=== PATIENT | female | born 1960 | race African-American/Black ===

== ENCOUNTER → 2016-07-05 | Outpatient (CLI) | payer MEDICARE, MEDICAID ==
[~2016-07-05] MED LIST: ACET325S8 PR; ADVA230A PO; ADVAI250I PO; ALPR.25 PO; AMLO5TAB96 PO; CLON0.2T PO; ECOT81TA2 PO; HYDR10SO PO; ISOSM20 PO; LABE200T2 PO; LEVA0.3113 NEB; PRED20 PO; ROSU40 PO; SPIR25 PO; VITA400C28
[2016-07-05 07:47] LABS: AUTOMATED NEUTROPHIL # 6.8 TH/MM3 (1.8-7.7); BASOPHIL % 0.3 % (0.0-2.0); EOSINOPHIL # 0.2 TH/MM3 (0-0.4); EOSINOPHIL % 2.1 % (0.0-4.0); HEMATOCRIT 38.8 % (35.0-46.0); HEMO FLAGS DIFF FINAL; LYMPHOCYTE # 2.2 TH/MM3 (1.0-4.8); MEAN CELL VOLUME 92.3 FL (80.0-100.0); MEAN CORPUSCULAR HEMOGLOBIN 31.3 PG (27.0-34.0); MEAN CORPUSCULAR HGB CONC 33.9 % (32.0-36.0); MONO % 6.7 % (0.0-8.0); NEUT % 68.9 % (16.0-70.0); PLATELET COUNT 208 TH/MM3 (150-450); RED CELL DISTRIBUTION WIDTH 15.4 % (11.6-17.2); WHITE BLOOD COUNT 9.9 TH/MM3 (4.0-11.0)
[2016-07-05 08:05] LABS: BACTERIA, URINE OCC /hpf; BLOOD, URINE NEG (NEG); GLUCOSE,URINE NEG (NEG); HYALINE CAST, URINE 1 /lpf (RARE); KETONE, URINE NEG (NEG); MUCUS URINE FEW /lpf (OCC); NITRITE,URINE NEG (NEG); PH, URINE 5.5 (5.0-8.5); SQUAMOUS EPITHELIAL CELL URINE 1 /hpf (0-5); URINE COLOR YELLOW (YELLW/STRAW)
[2016-07-05 08:11] LABS: ALKALINE PHOSPHATASE 94 U/L (45-117); ALT (GPT) 18 U/L (10-53); ANION GAP 7 MEQ/L (5-15); AST (GOT) 9 U/L (15-37); BICARBONATE 24.7 MEQ/L (21.0-32.0); BLOOD UREA NITROGEN 28 MG/DL (7-18); CHLORIDE 105 MEQ/L (98-107); GLOMERULAR FILTRATION RATE 38 ML/MIN (>89); GLUCOSE,FASTING 108 MG/DL (74-99); SODIUM (NA) 137 MEQ/L (136-145); TOTAL BILIRUBIN ADULT 0.3 MG/DL (0.2-1.0)
[2016-07-05 08:15] LABS: WESTERGREN SEDIMENTATION RATE 42 mm/hr (0-30)
== END ==
LOC: CLAB 07:09
PROVIDERS: ATTEND Allergy & Immunology
DX: M32.9 Systemic lupus erythematosus, unspecified (principal)
CPT/HCPCS: 36415; 80053; 81001; 85025; 85652; 86140; 86225

== ENCOUNTER → 2016-08-09 | Outpatient (CLI) | payer MEDICARE, MEDICAID ==
[2016-08-09 07:05] LABS: AUTOMATED NEUTROPHIL # 8.4 TH/MM3 (1.8-7.7); BASOPHIL # 0.1 TH/MM3 (0-0.2); BASOPHIL % 0.7 % (0.0-2.0); EOSINOPHIL # 0.1 TH/MM3 (0-0.4); EOSINOPHIL % 1.3 % (0.0-4.0); HEMATOCRIT 38.3 % (35.0-46.0); HEMO FLAGS DIFF FINAL; LYMPH % 16.9 % (9.0-44.0); LYMPHOCYTE # 1.9 TH/MM3 (1.0-4.8); MEAN CELL VOLUME 92.1 FL (80.0-100.0); MEAN CORPUSCULAR HEMOGLOBIN 31.1 PG (27.0-34.0); MEAN CORPUSCULAR HGB CONC 33.7 % (32.0-36.0); MONO % 8.1 % (0.0-8.0); PLATELET COUNT 204 TH/MM3 (150-450); RED BLOOD COUNT 4.16 MIL/MM3 (4.00-5.30); RED CELL DISTRIBUTION WIDTH 15.6 % (11.6-17.2); WHITE BLOOD COUNT 11.5 TH/MM3 (4.0-11.0)
[2016-08-09 07:28] LABS: ALT (GPT) 19 U/L (10-53); ANION GAP 8 MEQ/L (5-15); AST (GOT) 9 U/L (15-37); BICARBONATE 25.5 MEQ/L (21.0-32.0); BLOOD UREA NITROGEN 28 MG/DL (7-18); CHLORIDE 108 MEQ/L (98-107); GLOMERULAR FILTRATION RATE 43 ML/MIN (>89); GLUCOSE,FASTING 92 MG/DL (74-99); POTASSIUM 4.3 MEQ/L (3.5-5.1); SODIUM (NA) 141 MEQ/L (136-145)
[2016-08-09 07:30] LABS: ALKALINE PHOSPHATASE 81 U/L (45-117); TOTAL BILIRUBIN ADULT 0.3 MG/DL (0.2-1.0)
[2016-08-09 07:33] LABS: WESTERGREN SEDIMENTATION RATE 12 mm/hr (0-30)
== END ==
LOC: CLAB 06:38
PROVIDERS: ATTEND Allergy & Immunology
DX: M32.8 Other forms of systemic lupus erythematosus (principal); Z79.899 Other long term (current) drug therapy
CPT/HCPCS: 36415; 80053; 85025; 85652; 86140

== ENCOUNTER → 2016-10-03 | Outpatient (CLI) | payer MEDICARE, MEDICAID ==
[2016-10-03 07:55] LABS: AUTOMATED NEUTROPHIL # 7.7 TH/MM3 (1.8-7.7); BASOPHIL # 0.1 TH/MM3 (0-0.2); BASOPHIL % 0.7 % (0.0-2.0); EOSINOPHIL # 0.3 TH/MM3 (0-0.4); EOSINOPHIL % 2.9 % (0.0-4.0); HEMATOCRIT 38.9 % (35.0-46.0); HEMO FLAGS DIFF FINAL; LYMPH % 18.3 % (9.0-44.0); MEAN CELL VOLUME 92.5 FL (80.0-100.0); MEAN CORPUSCULAR HEMOGLOBIN 31.1 PG (27.0-34.0); MEAN CORPUSCULAR HGB CONC 33.6 % (32.0-36.0); NEUT % 70.1 % (16.0-70.0); PLATELET COUNT 188 TH/MM3 (150-450); RED BLOOD COUNT 4.21 MIL/MM3 (4.00-5.30); RED CELL DISTRIBUTION WIDTH 15.2 % (11.6-17.2)
[2016-10-03 07:56] LABS: BACTERIA, URINE RARE /hpf; BLOOD, URINE NEG (NEG); COMMENT (UR) CULT NOT INDICATED; CULTURE IF INDICATED CULT NOT INDICATED; GLUCOSE,URINE NEG (NEG); KETONE, URINE NEG (NEG); MUCUS URINE FEW /lpf (OCC); NITRITE,URINE NEG (NEG); PH, URINE 5.5 (5.0-8.5); SQUAMOUS EPITHELIAL CELL URINE 1 /hpf (0-5); URINE COLOR YELLOW (YELLW/STRAW)
[2016-10-03 08:22] LABS: ALT (GPT) 18 U/L (10-53); ANION GAP 4 MEQ/L (5-15); AST (GOT) 15 U/L (15-37); BICARBONATE 28.1 MEQ/L (21.0-32.0); BLOOD UREA NITROGEN 20 MG/DL (7-18); CHLORIDE 107 MEQ/L (98-107); GLOMERULAR FILTRATION RATE 47 ML/MIN (>89); GLUCOSE,FASTING 102 MG/DL (74-99); POTASSIUM 4.2 MEQ/L (3.5-5.1); SODIUM (NA) 139 MEQ/L (136-145); WESTERGREN SEDIMENTATION RATE 48 mm/hr (0-30)
[2016-10-03 08:25] LABS: ALKALINE PHOSPHATASE 92 U/L (45-117); TOTAL BILIRUBIN ADULT 0.3 MG/DL (0.2-1.0)
== END ==
LOC: CLAB 07:00
PROVIDERS: ATTEND Allergy & Immunology
DX: M32.8 Other forms of systemic lupus erythematosus (principal); Z79.899 Other long term (current) drug therapy
CPT/HCPCS: 36415; 80053; 81001; 85025; 85652; 86140; 86225

== ENCOUNTER → 2016-11-16 | Outpatient (CLI) | payer MEDICARE, MEDICAID ==
[2016-11-16 08:59] LABS: BICARBONATE 27.9 MEQ/L (21.0-32.0); FREE T4 1.11 NG/DL (0.76-1.46); POTASSIUM 4.2 MEQ/L (3.5-5.1); URIC ACID 8.2 MG/DL (2.6-6.0)
[2016-11-16 09:00] LABS: CORTISOL 11.7 MCG/DL
[2016-11-16 09:24] LABS: MAGNESIUM 2.1 MG/DL (1.5-2.5)
[2016-11-17 19:53] LABS: THYROGLOB ABS LESS THAN 1 IU/mL (< OR = 1)
[2016-11-21 07:39] LABS: HDL CHOLESTEROL 35.2 MG/DL (40.0-60.0)
== END ==
LOC: CLAB 07:01
PROVIDERS: ATTEND Internal Medicine Endocrinology, Diabetes & Metabolism
DX: E04.9 Nontoxic goiter, unspecified (principal); E04.1 Nontoxic single thyroid nodule; I10 Essential (primary) hypertension; Z78.0 Asymptomatic menopausal state; K76.0 Fatty (change of) liver, not elsewhere classified; I70.209 Unspecified atherosclerosis of native arteries of extremities, unspecified extremity; E66.01 Morbid (severe) obesity due to excess calories; I11.9 Hypertensive heart disease without heart failure
CPT/HCPCS: 36415; 80048; 80061; 82024; 82043; 82088; 82306; 82533; 82627; 82747; 83525; 83735; 83970; 84100; 84206; 84244; 84439; 84443; 84450; 84460; 84480; 84550; 84681; 86376; 86800

== ENCOUNTER → 2016-11-21 | Outpatient (CLI) | payer MEDICARE, MEDICAID ==
[2016-11-21 12:19] LABS: CREAT 24 TIMED 110.9 MG/DL
[2016-11-22 18:04] LABS: IODINE CONCENTRATION 95 mcg/L (26-705)
== END ==
LOC: CLAB 07:07
PROVIDERS: ATTEND Internal Medicine Endocrinology, Diabetes & Metabolism
DX: E04.1 Nontoxic single thyroid nodule (principal); I10 Essential (primary) hypertension; K76.0 Fatty (change of) liver, not elsewhere classified; I70.209 Unspecified atherosclerosis of native arteries of extremities, unspecified extremity; E66.01 Morbid (severe) obesity due to excess calories; E66.9 Obesity, unspecified; I11.9 Hypertensive heart disease without heart failure; I25.118 Atherosclerotic heart disease of native coronary artery with other forms of angina pectoris; I48.0 Paroxysmal atrial fibrillation; Z78.0 Asymptomatic menopausal state
CPT/HCPCS: 82570; 83789

== ENCOUNTER 2016-12-10 17:14 | Observation (INO) | payer MEDICARE, MEDICAID ==
[~2016-12-10] VITALS: Ht 165.1 cm; Wt 127.0 kg
[2016-12-10 17:17] VITALS: PULSE 70; RESP 20; TEMP 98.8; O2SAT 96
[2016-12-10] MEDS ORDERED: SODIUM CHLORIDE 0.9% FLUSH 10 ML FLUSH IVF PRN (17:30)
[2016-12-10 17:41] VITALS: BP 127/88; PULSE 71; RESP 18; TEMP 98.6; O2SAT 97
[2016-12-10] MEDS ORDERED: methylPREDNISolone SOD SUCC 125 MG/2 ML VIAL IV PUSH ONE (17:45)
[2016-12-10] MEDS ORDERED: diphenhydrAMINE HCL 50 MG/ML VIAL IV PUSH ONE (17:45)
[2016-12-10] MEDS ORDERED: SODIUM CHLOR 0.9% 1000 ML INJ 1,000 ML IV ONE (17:45)
[2016-12-10] MEDS ORDERED: FAMOTIDINE 20 MG/2 ML VIAL IV PUSH ONE (17:45)
[2016-12-10 17:54] VITALS: O2SAT 100
--- NOTE | 2016-12-10 18:01 | RADRPT ---
EXAM DATE/TIME: 12/10/2016 17:37 [facility] COMPARISON: CHEST SINGLE AP, November 25, 2015, 17:18. INDICATIONS : Chest pain. MEDICAL HISTORY : Chronic obstructive pulmonary disease. Congestive heart failure. Asthma. SURGICAL HISTORY : Tonsillectomy. section. Coronary artery stent. Cervical fusion. Cardiac ENCOUNTER: Initial ACUITY: 1 day PAIN SCORE: 10/10 LOCATION: Bilateral chest FINDINGS: A single view of the chest demonstrates the lungs to be symmetrically aerated without evidence of mas s, infiltrate or effusion. Cardiomegaly. The cardiomediastinal contours are unremarkable. Osseous st ructures are intact. CONCLUSION: No acute disease. Dg Garcia MD on December 10, 2016 at 17:59 Board Certified Radiologist. This report was verified electronically.
--- NOTE | 2016-12-10 18:01 | PD ---
HPI Chief Complaint: Pain: Acute or Chronic Time Seen by Provider: 17:26 Travel History International Travel<30 days: No Contact w/Intl Traveler<30days: No Traveled to known affect area: No History of Present Illness HPI Patient is a 56-year-old female with history of lupus, CABG, coronary artery disease, hyperlipidemia, CHF, ischemic heart disease, hypertension, A. fib, chronic kidney disease, presents to emergency room with complaints of chest pain. Patient was sent to the emergency room by her primary care doctor to rule out aortic dissection. Patient reports that for the past 2 days, she has been having chest pain radiating to her back. Reports that sensation is a sharp and stabbing sensation. Reports that she has been feeling nauseous with her chest pain, denies any vomiting. Patient denies any shortness of breath or diaphoresis with symptoms. Patient reports that she is currently taking Effient as well as ASA for her heart disease. PFSH Past Medical History Hx Anticoagulant Therapy: Yes Anemia: Yes Arthritis: Yes Asthma: Yes Atrial Fibrillation: Yes (NOT NOW) Autoimmune Disease: Yes (LUPUS) Blood Disorders: No Anxiety: Yes Heart Rhythm Problems: Yes (A-FIB) Cancer: No Cardiac Catheterization: Yes (JULY 2006) Cardiomyopathy: Yes Cardiovascular Problems: Yes High Cholesterol: Yes Chest Pain: Yes Congestive Heart Failure: Yes COPD: Yes Cerebrovascular Accident: No Coronary Artery Disease: Yes Diabetes: No Endocrine: No Genetic Disorder: Yes (SICKLE CELL) GERD: No Genitourinary: No Headaches: Yes Hepatitis: No Hiatal Hernia: No Hypertension: Yes Immune Disorder: No Inguinal Hernia: Yes Kidney Stones: No Musculoskeletal: Yes (FIBROMYALGIA, CHRONIC PAIN) Neurologic: No Psychiatric: Yes Reproductive: No Respiratory: Yes (COPD, SLEEP APNEA/CPAP W/O2) Migraines: No Myocardial Infarction: Yes Renal Failure: No Seizures: No Sleep Apnea: Yes Thyroid Disease: Yes (GOITER) Ulcer: No : 4 Para: 2 Miscarriage: 2 Ovarian Cysts: Yes (UTERINE CYSTS X 4) Tubal Ligation: Yes (1982) Past Surgical History Abdominal Surgery: Yes (HERNIA REPAIR UMBILICAL) AICD: No Appendectomy: No Arteriovenous Shunt: No Body Medical Devices: NONE AT ALL Cardiac Surgery: Yes (ABLATION IN 2000, LOOP RECORDER, CABG) Section: Yes (1979 1982) Cholecystectomy: No Coronary Artery Bypass Graft: Yes (WITH MULTIPLE INFECTIONS POSTOP) Coronary Stent: Yes (X2, DR LONGO, 2WKS AGO) Ear Surgery: No Endocrine Surgery: No Eye Surgery: No Genitourinary Surgery: No Gynecologic Surgery: Yes (C SECTION X2) Insulin Pump: No Joint Replacement: No Neurologic Surgery: Yes (CERVICAL FUSION C2-C5) Oral Surgery: Yes (T & A) Pacemaker: No Thoracic Surgery: No Tonsillectomy: Yes Social History Alcohol Use: No Tobacco Use: No Substance Use: No Allergies-Medications (Allergen,Severity, Reaction): Coded Allergies: Codeine (Verified Allergy, Severe, NAUSEA/VOMITING, 11/25/15) Contrast Media (Verified Allergy, Severe, RASH, 11/25/15) Darvocet-N 100 (Verified Allergy, Severe, NAUSEA/VOMITING, 11/25/15) Darvon (Verified Allergy, Severe, NAUSEA/VOMITING, 11/25/15) Morphine (Verified Allergy, Severe, Rash, 11/25/15) Phenergan (Verified Allergy, Severe, AGITATION, 11/25/15) Reglan (Verified Allergy, Severe, AGITATION, 11/25/15) Latex (Verified Allergy, Unknown, RASH, 11/25/15) PLEASE, CHECK WITH PT HER REACTION TO LATEX. Ativan (Verified Adverse Reaction, Severe, AGITATION, 11/25/15) Cipro (Verified Adverse Reaction, Severe, 11/25/15) NAUSEA Reported Meds & Prescriptions Reported Meds & Active Scripts Active Aldactone 25 mg (Spironolactone) 25 Mg Tab 25 Mg PO BID@09,18 30 Days Hydrocodone/Acetaminophen 10 mg/325 mg 1 Tab 1 Tab PO Q4H PRN Ecotrin (Aspirin) 81 Mg Tabec 81 Mg PO DAILY 30 Days Ismo 20 Mg Tab (Isosorbide Mononitrate) 20 Mg Tab 20 Mg PO BID@07,14 30 Days Clonidine Hcl (Clonidine HCl) 0.2 Mg Tab 0.2 Mg PO BID 30 Days Reported Advair Hfa 230/21 (Fluticasone-Salmeterol HFA 230 mcg/21 mcg) Fluticasone/ Salmeterol 230/21 Inh 2 Puff PO BID Xanax 0.25 Mg (Alprazolam) Alprazolam 0.25 mg Tab 1 Tab PO BID Crestor (Rosuvastatin Calcium) 40 Mg Tab 40 Mg PO DAILY Advair Diskus 250/50 (Salmeterol Xinafoate/Fluticasone) Fluticasone/Salmeterol 250/50 Inh 1 Puff PO BID Vitamin D (Cholecalciferol) 400 Unit Cap Tylenol (Acetaminophen) 325 Mg Sup 325 Mg OR Q6H Deltasone 20 Mg Tab (Prednisone) 20 Mg Tab 20 Mg PO DAILY Norvasc (Amlodipine Besylate) 5 Mg Tab 10 Mg PO DAILY Trandate (Labetalol HCl) 200 Mg Tab 300 Mg PO TID Xopenex (Levalbuterol HCl) 0.31 Mg Neb 0 Mg NEB DAILYPRN UNKNOWN DOSE Review of Systems Cardiovascular: Positive: Chest Pain or Discomfort, No: Palpitations, Irregular Rhythm Respiratory: No: Shortness of Breath Gastrointestinal: Positive: Nausea, No: Vomiting, Abdominal Pain Physical Exam Narrative GENERAL: Moderate distress SKIN: Focused skin assessment warm/dry. HEAD: Atraumatic. Normocephalic. EYES: Pupils equal and round. No scleral icterus. No injection or drainage. ENT: No nasal bleeding or discharge. Mucous membranes pink and moist. NECK: Trachea midline. No JVD. CARDIOVASCULAR: Regular rate and rhythm. No murmur appreciated. RESPIRATORY: No accessory muscle use. Clear to auscultation. Breath sounds equal bilaterally. GASTROINTESTINAL: Abdomen soft, non-tender, nondistended. Hepatic and splenic margins not palpable. MUSCULOSKELETAL: No obvious deformities. No clubbing. No cyanosis. No edema. NEUROLOGICAL: Awake and alert. No obvious cranial nerve deficits. Motor grossly within normal limits. Normal speech. PSYCHIATRIC:Patient anxious on exam Data Data Last Documented VS Vital Signs Date Time Temp Pulse Resp B/P Pulse Ox O2 Delivery O2 Flow Rate FiO2 12/10/16 17:54 100 12/10/16 17:41 98.6 71 18 127/88 12/10/16 17:17 Room Air Orders Electrocardiogram (12/10/16 17:24) B-Type Natriuretic Peptide (12/10/16 17:24) Ckmb (Isoenzyme) Profile (12/10/16 17:24) Complete Blood Count With Diff (12/10/16 17:24) Comprehensive Metabolic Panel (12/10/16 17:24) Magnesium (Mg) (12/10/16 17:24) Prothrombin Time / Inr (Pt) (12/10/16 17:24) Act Partial Throm Time (Ptt) (12/10/16 17:24) Troponin I (12/10/16 17:24) Lipase (12/10/16 17:24) Chest, Single Ap (12/10/16 17:24) Ecg Monitoring (12/10/16 17:24) Bilateral Bp Monitoring (12/10/16 17:24) Iv Access Insert/Monitor (12/10/16 17:24) Oximetry (12/10/16 17:24) Sodium Chloride 0.9% Flush (Ns Flush) (12/10/16 17:30) Cta Thor Abd Aorta W Iv C W3d (12/10/16 17:35) Methylprednisolone So Succ Inj (Solumedr (12/10/16 17:45) Diphenhydramine Inj (Benadryl Inj) (12/10/16 17:45) Famotidine Inj (Pepcid Inj) (12/10/16 17:45) Sodium Chlor 0.9% 1000 Ml Inj (Ns 1000 M (12/10/16 17:45) Type And Screen (12/10/16 17:39) CKMB (12/10/16 17:30) CKMB% (12/10/16 17:30) Labs Laboratory Tests Test 12/10/16 12/10/16 17:30 18:00 White Blood Count 11.1 TH/MM3 Red Blood Count 4.47 MIL/MM3 Hemoglobin 14.0 GM/DL Hematocrit 41.4 % Mean Corpuscular Volume 92.5 FL Mean Corpuscular Hemoglobin 31.2 PG Mean Corpuscular Hemoglobin 33.7 % Concent Red Cell Distribution Width 16.1 % Platelet Count 220 TH/MM3 Mean Platelet Volume 10.3 FL Neutrophils (%) (Auto) 68.9 % Lymphocytes (%) (Auto) 20.9 % Monocytes (%) (Auto) 7.7 % Eosinophils (%) (Auto) 2.2 % Basophils (%) (Auto) 0.3 % Neutrophils # (Auto) 7.6 TH/MM3 Lymphocytes # (Auto) 2.3 TH/MM3 Monocytes # (Auto) 0.9 TH/MM3 Eosinophils # (Auto) 0.2 TH/MM3 Basophils # (Auto) 0.0 TH/MM3 CBC Comment DIFF FINAL Differential Comment Prothrombin Time 10.6 SEC Prothromb Time International 1.0 RATIO Ratio Activated Partial 30.2 SEC Thromboplast Time Sodium Level 140 MEQ/L Potassium Level 3.5 MEQ/L Chloride Level 102 MEQ/L Carbon Dioxide Level 29.1 MEQ/L Anion Gap 9 MEQ/L Blood Urea Nitrogen 29 MG/DL Creatinine 1.70 MG/DL Estimat Glomerular Filtration 38 ML/MIN Rate Random Glucose 96 MG/DL Calcium Level 9.0 MG/DL Magnesium Level 2.1 MG/DL Total Bilirubin 0.4 MG/DL Aspartate Amino Transf 10 U/L (AST/SGOT) Alanine Aminotransferase 18 U/L (ALT/SGPT) Alkaline Phosphatase 95 U/L Total Creatine Kinase 105 U/L Creatine Kinase MB 1.1 NG/ML Troponin I 0.02 NG/ML Total Protein 8.5 GM/DL Albumin 3.5 GM/DL Lipase 203 U/L Blood Type O POSITIVE MDM Medical Decision Making Medical Screen Exam Complete: Yes Emergency Medical Condition: Yes Interpretation(s) EKG at 1742: NSR at 67bpm, qt/qtc: 441/457, st seg depression I, II, avl, V3-V6 Vital Signs Date Time Temp Pulse Resp B/P Pulse Ox O2 Delivery O2 Flow Rate FiO2 12/10/16 17:41 98.6 71 18 127/88 97 12/10/16 17:17 98.8 70 20 96 Room Air Differential Diagnosis Differential includes ACS, arrhythmia, aortic dissection, pulmonary embolism, GERD, gastritis, electrolyte abnormality Narrative Course Patient is a 56-year-old female with history of lupus, CABG, coronary artery disease, hyperlipidemia, CHF, ischemic heart disease, hypertension, A. fib, chronic kidney disease, presents to emergency room with complaints of chest pain. Patient was sent to the emergency room by her primary care doctor to rule out aortic dissection. Patient reports that for the past 2 days, she has been having chest pain radiating to her back. Patient was sent to the ER to rule out aortic dissection. Patient reports that she has chronic kidney disease, patient understands the risk and benefits of IV dye, that she may need dialysis if she goes into kidney failure and accepts the risk Patient also reports an allergy to IV dye, reports that she breaks out into hives. Reports no history of airway involvement. Patient will be premedicated with Solu-Medrol 125 mg IV, benadryl 50 mg IV, Pepcid 20 mg IV. Case was reviewed with Dr. Damon, radiologist; patient can have CAT scan to rule out aortic dissection after she receives her IV steroids and does not have to wait the 1 hour prep time. I reviewed all risks and benefits for CT with IV contrast to rule out aortic dissection - patient assumes this risk. Patient signed out to Dr. Amaya at change of shift Nae Chau DO Dec 10, 2016 18:01
[2016-12-10 18:06] LABS: AUTOMATED NEUTROPHIL # 7.6 TH/MM3 (1.8-7.7); BASOPHIL % 0.3 % (0.0-2.0); EOSINOPHIL # 0.2 TH/MM3 (0-0.4); EOSINOPHIL % 2.2 % (0.0-4.0); HEMATOCRIT 41.4 % (35.0-46.0); HEMO FLAGS DIFF FINAL; LYMPH % 20.9 % (9.0-44.0); LYMPHOCYTE # 2.3 TH/MM3 (1.0-4.8); MEAN CELL VOLUME 92.5 FL (80.0-100.0); MEAN CORPUSCULAR HEMOGLOBIN 31.2 PG (27.0-34.0); MEAN CORPUSCULAR HGB CONC 33.7 % (32.0-36.0); MONO % 7.7 % (0.0-8.0); NEUT % 68.9 % (16.0-70.0); PLATELET COUNT 220 TH/MM3 (150-450); RED BLOOD COUNT 4.47 MIL/MM3 (4.00-5.30); RED CELL DISTRIBUTION WIDTH 16.1 % (11.6-17.2); WHITE BLOOD COUNT 11.1 TH/MM3 (4.0-11.0)
[2016-12-10 18:16] LABS: APTT (PATIENT) 30.2 SEC (24.3-30.1); PROTHROMBIN TIME - PATIENT 10.6 SEC (9.8-11.6)
[2016-12-10 18:35] LABS: ANION GAP 9 MEQ/L (5-15); AST (GOT) 10 U/L (15-37); BICARBONATE 29.1 MEQ/L (21.0-32.0); BLOOD UREA NITROGEN 29 MG/DL (7-18); CHLORIDE 102 MEQ/L (98-107); GLOMERULAR FILTRATION RATE 38 ML/MIN (>89); MAGNESIUM 2.1 MG/DL (1.5-2.5); POTASSIUM 3.5 MEQ/L (3.5-5.1); SODIUM (NA) 140 MEQ/L (136-145)
[2016-12-10 18:40] LABS: ALKALINE PHOSPHATASE 95 U/L (45-117); ALT (GPT) 18 U/L (10-53); CREATINE KINASE 105 U/L (26-192); TOTAL BILIRUBIN ADULT 0.4 MG/DL (0.2-1.0)
[2016-12-10 18:52] LABS: CKMB 1.1 NG/ML (0.5-3.6)
[2016-12-10] MEDS ORDERED: IOHEXOL 350 MG/ML 10 ML VIAL (for RAD DIAG) IV ONE (19:04)
--- NOTE | 2016-12-10 19:17 | RADRPT ---
EXAM DATE/TIME: 12/10/2016 18:37 [facility] COMPARISON: No previous studies available for comparison. INDICATIONS : Chest pain. IV CONTRAST: 100 cc Omnipaque 350 (iohexol) IV RADIATION DOSE: 44.52 CTDIvol (mGy) ; Patient body habitus MEDICAL HISTORY : Cardiovascular disease. SURGICAL HISTORY : cardiac ENCOUNTER: Initial ACUITY: 3 days PAIN SCALE: 4/10 LOCATION: Bilateral chest TECH NOTE: scanned with premedication prior to one hour protocal per Dr Damon. best possible images due to patient allergy. TECHNIQUE: Volumetric scanning was performed using a multi-row detector CT scanner. The data was post processed with a variety of visualization algorithms including full volume maximum intensity projection, multi -planar sliding thin slab reformation, curved planar reformation, and surface rendering techniques. Using automated exposure control and adjustment of the mA and/or kV according to patient size, radiat ion dose was kept as low as reasonably achievable to obtain optimal diagnostic quality images. DICOM format image data is available electronically for review and comparison. FINDINGS: LUNGS: There is no consolidation or pneumothorax. No concerning pulmonary nodule is visualized. No pleural fluid is present. MEDIASTINUM: No abnormally enlarged lymph nodes by CT criteria. No axillary or hilar abnormalities are identified. Cardiomegaly. ABDOMEN: The liver and spleen are free of focal defects. The gallbladder and pancreas demonstrate no abnormali ty. The adrenal glands are normal. The kidneys demonstrate no evidence of solid renal mass or hydrone phrosis. No free fluid or abdominal masses are identified. Scattered diverticulosis. No para-aortic a denopathy is seen. Left renal cyst. PELVIS: No evidence of free fluid or pelvic mass. No abnormally enlarged inguinal or retroperitoneal lymph no lynda are present. The bladder is unremarkable. Enlarged heterogeneous uterus containing masses includi ng a mass along the anterior left pelvis likely exophytic fibroid measuring 5.5 cm. Second cystic pel mango mass is seen more superiorly measuring 4.2 cm. THORACIC AORTA: The thoracic aortic root is normal with normal branching of the great vessels. There is no evidence of aneurysm or dissection. ABDOMINAL AORTA: The aorta is normal in caliber without aneurysm or dissection. The renal arteries are patent bilater ally. The proximal celiac and superior mesenteric arteries are patent and normal in diameter. PELVIC VESSELS: The internal iliac and external iliac vessels are patent without aneurysm or stenosis. CONCLUSION: 1. No aortic aneurysm or dissection. 2. Cardiomegaly. 3. Enlargement of the pulmonary trunk consistent with pulmonary arterial hypertension. 4. A large heterogeneous uterus containing multiple masses including what appears to be an exophytic anterior left pelvic mass and a second cystic mass seen within the upper left pelvis. These are likel y related to leiomyomas. Outpatient followup imaging recommended. 5. Diverticulosis without diverticulitis. Dg Garcia MD on December 10, 2016 at 19:12 Board Certified Radiologist. This report was verified electronically.
--- NOTE | 2016-12-10 19:54 | PD ---
Data Data Last Documented VS Vital Signs Date Time Temp Pulse Resp B/P Pulse Ox O2 Delivery O2 Flow Rate FiO2 12/10/16 17:54 100 12/10/16 17:41 98.6 71 18 127/88 12/10/16 17:17 Room Air Orders Electrocardiogram (12/10/16 17:24) B-Type Natriuretic Peptide (12/10/16 17:24) Ckmb (Isoenzyme) Profile (12/10/16 17:24) Complete Blood Count With Diff (12/10/16 17:24) Comprehensive Metabolic Panel (12/10/16 17:24) Magnesium (Mg) (12/10/16 17:24) Prothrombin Time / Inr (Pt) (12/10/16 17:24) Act Partial Throm Time (Ptt) (12/10/16 17:24) Troponin I (12/10/16 17:24) Lipase (12/10/16 17:24) Chest, Single Ap (12/10/16 17:24) Ecg Monitoring (12/10/16 17:24) Bilateral Bp Monitoring (12/10/16 17:24) Iv Access Insert/Monitor (12/10/16 17:24) Oximetry (12/10/16 17:24) Sodium Chloride 0.9% Flush (Ns Flush) (12/10/16 17:30) Cta Thor Abd Aorta W Iv C W3d (12/10/16 17:35) Methylprednisolone So Succ Inj (Solumedr (12/10/16 17:45) Diphenhydramine Inj (Benadryl Inj) (12/10/16 17:45) Famotidine Inj (Pepcid Inj) (12/10/16 17:45) Sodium Chlor 0.9% 1000 Ml Inj (Ns 1000 M (12/10/16 17:45) Type And Screen (12/10/16 17:39) CKMB (12/10/16 17:30) CKMB% (12/10/16 17:30) Iohexol 350 Inj (Omnipaque 350 Inj) (12/10/16 19:04) Red Blood Cells (Rbc) (12/10/16 18:00) Labs Laboratory Tests Test 12/10/16 12/10/16 17:30 18:00 White Blood Count 11.1 TH/MM3 Red Blood Count 4.47 MIL/MM3 Hemoglobin 14.0 GM/DL Hematocrit 41.4 % Mean Corpuscular Volume 92.5 FL Mean Corpuscular Hemoglobin 31.2 PG Mean Corpuscular Hemoglobin 33.7 % Concent Red Cell Distribution Width 16.1 % Platelet Count 220 TH/MM3 Mean Platelet Volume 10.3 FL Neutrophils (%) (Auto) 68.9 % Lymphocytes (%) (Auto) 20.9 % Monocytes (%) (Auto) 7.7 % Eosinophils (%) (Auto) 2.2 % Basophils (%) (Auto) 0.3 % Neutrophils # (Auto) 7.6 TH/MM3 Lymphocytes # (Auto) 2.3 TH/MM3 Monocytes # (Auto) 0.9 TH/MM3 Eosinophils # (Auto) 0.2 TH/MM3 Basophils # (Auto) 0.0 TH/MM3 CBC Comment DIFF FINAL Differential Comment Prothrombin Time 10.6 SEC Prothromb Time International 1.0 RATIO Ratio Activated Partial 30.2 SEC Thromboplast Time Sodium Level 140 MEQ/L Potassium Level 3.5 MEQ/L Chloride Level 102 MEQ/L Carbon Dioxide Level 29.1 MEQ/L Anion Gap 9 MEQ/L Blood Urea Nitrogen 29 MG/DL Creatinine 1.70 MG/DL Estimat Glomerular Filtration 38 ML/MIN Rate Random Glucose 96 MG/DL Calcium Level 9.0 MG/DL Magnesium Level 2.1 MG/DL Total Bilirubin 0.4 MG/DL Aspartate Amino Transf 10 U/L (AST/SGOT) Alanine Aminotransferase 18 U/L (ALT/SGPT) Alkaline Phosphatase 95 U/L Total Creatine Kinase 105 U/L Creatine Kinase MB 1.1 NG/ML Troponin I 0.02 NG/ML B-Type Natriuretic Peptide 44 PG/ML Total Protein 8.5 GM/DL Albumin 3.5 GM/DL Lipase 203 U/L Blood Type O POSITIVE Antibody Screen NEGATIVE [facility] Medical Record Reviewed: Yes Supervised Visit with MEDARDO: No Interpretation(s) Last Impressions Aorta CTA 12/10/16 8341 Signed Impressions: Service Date/Time: Saturday, December 10, 2016 18:37 - CONCLUSION: 1. No aortic aneurysm or dissection. 2. Cardiomegaly. 3. Enlargement of the pulmonary trunk consistent with pulmonary arterial hypertension. 4. A large heterogeneous uterus containing multiple masses including what appears to be an exophytic anterior left pelvic mass and a second cystic mass seen within the upper left pelvis. These are likely related to leiomyomas. Outpatient followup imaging recommended. 5. Diverticulosis without diverticulitis. Dg Garcia MD Chest X-Ray 12/10/16 1204 Signed Impressions: Service Date/Time: Saturday, December 10, 2016 17:37 - CONCLUSION: No acute disease. Dg Garcia MD Narrative Course During the course of the patients emergency department visit, the patients history, examination, and differential diagnosis were reviewed with the patient. The patient had IV access obtained and blood work sent for analysis. The patient was placed on a radiation monitor with oximetry and blood pressure monitoring. The patients laboratory studies were reviewed and remarkable for a white count 11.1, hemoglobin 14, platelets 220 with a normal differential, CMP is remarkable for a BUN of 29, creatinine 1.70, GFR of 38, AST 10, CPK 105, troponin I 0.02, BNP 44, total protein 8.5, lipase 203, PT 10.6, PTT 30.2 Radiology studies were reviewed and remarkable for a chest x-ray that shows no acute disease, CT of the aorta shows no aortic aneurysm or dissection, cardiomegaly is noted, enlargement the pulmonary trunk consistent with pulmonary arterial hypertension is noted, a large heterogeneous uterus containing multiple masses including what appears to be an exophytic anterior left pelvic mass and as second cystic mass seen within the upper left pelvis. These are likely related to leiomyomas, outpatient follow-up imaging recommended , diverticulosis without evidence of diverticulitis. The patient was provided aspirin 324 mg by mouth 1. The patient will be admitted to the chest pain center for rule out serial cardiac enzyme protocol followed by consideration of stress testing. The patients results were discussed with the patient, including the plan of care. I explained that further testing and/ or monitoring is indicated based on the patients history, examination, and/ or laboratory findings. Therefore, I recommended admission for additional evaluation. The patient expressed understanding and was agreeable with this plan. The patient was admitted to the hospital in stable condition and sent to a bed under the care of the chest pain center. Diagnosis Primary Impression: Chest pain, rule out acute myocardial infarction Admitting Information Admitting Physician Requests: Dominique Nagy MD Dec 10, 2016 19:54
[2016-12-10] MEDS ORDERED: ASPIRIN 81 MG CHEW TAB CHEW ONE (20:00)
[2016-12-10] MEDS ORDERED: ONDANSETRON HCL 4 MG/2 ML VIAL IV PRN (20:15)
[2016-12-10] MEDS ORDERED: SODIUM CHLORIDE 0.9% FLUSH 10 ML FLUSH IV FLUSH PRN (20:15)
[2016-12-10] MEDS ORDERED: TORS20TA PO (20:37)
[2016-12-10] MEDS ORDERED: TYLE325T PO (20:37)
[2016-12-10] MEDS ORDERED: AMLO5TAB2 PO (20:37)
[2016-12-10] MEDS ORDERED: PRED20 PO (20:37)
[2016-12-10] MEDS ORDERED: SPIR25 PO (20:37)
[2016-12-10] MEDS ORDERED: PRAS10TA PO (20:37)
[2016-12-10] MEDS ORDERED: LEVA3NEB12 NEB ×2 (20:37)
[2016-12-10] MEDS ORDERED: ROSU40 PO (20:37)
[2016-12-10] MEDS ORDERED: HYDR-3516 PO (20:37)
[2016-12-10] MEDS ORDERED: ISOS20TA PO (20:37)
[2016-12-10] MEDS ORDERED: ALPR.25 PO (20:37)
[2016-12-10] MEDS ORDERED: ADVA230A INH (20:37)
[2016-12-10] MEDS ORDERED: LABE200T2 PO (20:37)
[2016-12-10] MEDS ORDERED: NITRSPR6 (20:37)
[2016-12-10] MEDS ORDERED: ASPI81TA81 (20:37)
[2016-12-10] MEDS ORDERED: CLON0.2T PO (20:37)
[2016-12-10] MEDS: SODIUM CHLORIDE 0.9% FLUSH 10 ML FLUSH IV FLUSH SCH (20:41)
[2016-12-10 20:48] VITALS: BP 160/92; PULSE 67; RESP 18; O2SAT 97
[2016-12-10] MEDS: ACETAMINOPHEN 500 MG CPLT PO PRN (22:49)
[2016-12-11] VITALS (8 sets, daily range): BP systolic 130–160; BP diastolic 72–80; PULSE 66–81; RESP 18–20; TEMP 97.7–98.6; O2SAT 95–97
[2016-12-11 00:09] LABS: CREATINE KINASE 99 U/L (26-192)
[2016-12-11] MEDS: ACETAMINOPHEN 500 MG CPLT PO PRN (04:48)
--- NOTE | 2016-12-11 08:14 | HHI.HP ---
HPI Primary Care Physician Ashkan Ignacio MD Chief Complaint Chest pain History of Present Illness 56-year-old female with known coronary artery disease, CABG, hyperlipidemia, hypertensive heart failure, lupus, and A. fib presents to emergency room by the direction of her primary care provider to rule out aortic dissection. Onset Saturday afternoon. Location epigastrium. Characterized as "sore." Difficult for her to describe. Radiation to her back, back pain described as splitting pain. Associated symptoms of nausea. Denied vomiting, diaphoresis, shortness of breath. No particular movement or position may pain better or worse. It did not hurt to take a deep breath. No known precipitating or relieving factors. Intermittent chest discomfort pear and with "feeling funny" alerted her to tell her PCP. Her primary care provider directed her to the emergency room to be ruled out for aortic dissection. Review of Systems General: No fatigue,weakness, fever, chills, recent illness, recent travel, or change in appetite. Has been in her general state of health. HEENT: No DUFF, no nasal congestion or drainage, no dysphasia CV: As stated above. Denies any current chest pain or pressure. Follows with Dr. Morales last appointment 2 weeks ago. RESP: No SOB, cough, wheeze, or history of asthma. GI: No nausea, vomiting, bowel changes, diarrhea, constipation, pain, or distention. : No dysuria EXT: No lower leg edema, no paraesthesias MS: No discomfort or change in ROM NEURO: No difficulty with balance, LOC, motor/sensory deficits PSYCH: No anxiety, depression, or suicidal ideation SKIN: No rashes, no concerning lesions Past Family Social History Allergies: Coded Allergies: Codeine (Verified Allergy, Severe, NAUSEA/VOMITING, 12/10/16) Contrast Media (Verified Allergy, Severe, RASH, 12/10/16) Darvocet-N 100 (Verified Allergy, Severe, NAUSEA/VOMITING, 12/10/16) Darvon (Verified Allergy, Severe, NAUSEA/VOMITING, 12/10/16) Morphine (Verified Allergy, Severe, Rash, 12/10/16) Phenergan (Verified Allergy, Severe, AGITATION, 12/10/16) Reglan (Verified Allergy, Severe, AGITATION, 12/10/16) Latex (Verified Allergy, Unknown, RASH, 12/10/16) PLEASE, CHECK WITH PT HER REACTION TO LATEX. Ativan (Verified Adverse Reaction, Severe, AGITATION, 12/10/16) Cipro (Verified Adverse Reaction, Severe, 12/10/16) NAUSEA Past Medical History Lupus, CAD, CKD, hyperlipidemia, CHF, hypertension, A. fib, COPD, cardiac stent , goiter Past Surgical History CABG 2007, L breast cancer lumpectomy, tonsillectomy, C section x2, cervical fusion C2-C6 Reported Medications Active Reported Nitrolingual Sublingual Pumpspray (Nitroglycerin) 0.4 Mg/Act [place] Effient (Prasugrel) 10 Mg Tab 10 Mg PO HS Torsemide 20 Mg Tab 20 Mg PO MWS Aldactone (Spironolactone) 25 Mg Tab 25 Mg PO BIDPC Crestor (Rosuvastatin Calcium) 40 Mg Tab 40 Mg PO DAILY Prednisone 20 Mg Tab 20 Mg PO DAILY Hydrocodone-Acetaminophen 5-325 mg Tab 1 Tab PO Q6H PRN Xopenex Neb (Levalbuterol HCl) 1.25 Mg/3 Ml Neb 1.25 Mg NEB ONCE Xopenex Neb (Levalbuterol HCl) 1.25 Mg/3 Ml Neb 1.25 Mg NEB QID Labetalol (Labetalol HCl) 200 Mg Tab 400 Mg PO TID Isosorbide Mononitrate 20 Mg Tab 30 Mg PO BID Take 2 doses 7 hours apart. Advair Hfa 12 GM Inh (Fluticasone-Salmeterol 12 GM Inh) 230-21 Mcg/Act Aer 2 Puff INH BID Clonidine (Clonidine HCl) 0.2 Mg Tab 0.2 Mg PO BID Aspir-81 (Aspirin) 81 Mg Tabdr Amlodipine (Amlodipine Besylate) 5 Mg Tab 5 Mg PO HS Xanax (Alprazolam) 0.25 Mg Tab 0.25 Mg PO Q8H PRN Tylenol (Acetaminophen) 325 Mg Tab 325 Mg PO Q6H PRN Active Ordered Medications Current Medications Medications (Trade) Dose Ordered Sig/Finesse Route Start Time Stop Time Status Last Admin (Tylenol) 500 mg Q4H PRN PO 12/10/16 20:15 12/11/16 04:48 (Zofran Inj) 4 mg Q6H PRN IV 12/10/16 20:15 Social History Known CAD, HTN, and Hyperlipidemia. No known diabetes. Lifelong non-smoker. Jessica any alcohol or illegal drugs. Past Cardiac Testing 11/28/15 Cardiac Catheterization-(Dr. Rausch)-IMPRESSION 1. Severe two- vessel coronary atherosclerosis. 2. Status post non-ST elevation myocardial infarction. 3. Partially patent right internal mammary artery graft to the right ventricular marginal branch with an occluded limb to the posterior descending branch. No recent stress testing. Follows with Dr. Walls, seen two weeks ago in office. Physical Exam Vital Signs Vital Signs Date Time Temp Pulse Resp B/P Pulse Ox O2 Delivery O2 Flow Rate FiO2 12/11/16 07:11 97 Nasal Cannula 2.00 12/11/16 06:00 18 12/11/16 04:36 78 18 160/80 97 12/11/16 04:10 Nasal Cannula 2.00 12/11/16 04:01 81 12/11/16 01:20 98.6 66 18 130/72 96 12/11/16 00:36 77 12/10/16 20:48 67 18 160/92 97 Room Air 12/10/16 17:54 100 12/10/16 17:41 98.6 71 18 127/88 97 12/10/16 17:17 98.8 70 20 96 Room Air Physical Exam GENERAL: Alert WN, WD, NAD, pleasant, morbidly obese female HEAD: NC, AT EYES: Sclera clear, conjunctiva without injection, pupils equal and round ENT: Mucous membranes pink and moist NECK: Supple, no masses, trachea midline CV: RRR, without murmur, rub, gallop, no JVD, S1-S2 no S3-S4. RESP: Clear lungs throughout bilateral, no crackles, wheeze, rhonchi, symmetrical chest rise, nonlabored, able to speak in full sentences ABD: Soft, NT, ND, no masses, positive bowel tones, obese BACK: No CVAT EXT: Pulses +24, no dependent edema MS: Normal tone 4 extremities, nontender, no obvious deformities, full range of motion NEURO: CN II through CN XII grossly intact, motor strength 5/5, gait WNL PSYCH: A+O 3, pleasant affect, appropriate speech, appropriate mood and affect , insight and judgment SKIN: Normal turgor, normal texture, substernal chest scar Laboratory Laboratory Tests Test 12/10/16 12/10/16 12/10/16 12/10/16 17:30 18:00 20:59 23:32 White Blood Count 11.1 Red Blood Count 4.47 Hemoglobin 14.0 Hematocrit 41.4 Mean Corpuscular Volume 92.5 Mean Corpuscular Hemoglobin 31.2 Mean Corpuscular Hemoglobin 33.7 Concent Red Cell Distribution Width 16.1 Platelet Count 220 Mean Platelet Volume 10.3 Neutrophils (%) (Auto) 68.9 Lymphocytes (%) (Auto) 20.9 Monocytes (%) (Auto) 7.7 Eosinophils (%) (Auto) 2.2 Basophils (%) (Auto) 0.3 Neutrophils # (Auto) 7.6 Lymphocytes # (Auto) 2.3 Monocytes # (Auto) 0.9 Eosinophils # (Auto) 0.2 Basophils # (Auto) 0.0 CBC Comment DIFF FINAL Differential Comment Prothrombin Time 10.6 Prothromb Time International 1.0 Ratio Activated Partial 30.2 Thromboplast Time Sodium Level 140 Potassium Level 3.5 Chloride Level 102 Carbon Dioxide Level 29.1 Anion Gap 9 Blood Urea Nitrogen 29 Creatinine 1.70 Estimat Glomerular Filtration 38 Rate Random Glucose 96 Calcium Level 9.0 Magnesium Level 2.1 Total Bilirubin 0.4 Aspartate Amino Transf 10 (AST/SGOT) Alanine Aminotransferase 18 (ALT/SGPT) Alkaline Phosphatase 95 Total Creatine Kinase 105 92 99 Creatine Kinase MB 1.1 Troponin I 0.02 0.02 LESS THAN 0.02 B-Type Natriuretic Peptide 44 Total Protein 8.5 Albumin 3.5 Lipase 203 Blood Type O POSITIVE Antibody Screen NEGATIVE Crossmatch Leukocyte-Reduced Red Blood Cells Blood Bank Comment Result Diagram: 12/10/16172912/10/161729 Imaging Last Impressions Aorta CTA 12/10/161734 Signed Impressions: Service Date/Time: Saturday, December 10, 2016 18:37 - CONCLUSION: 1. No aortic aneurysm or dissection. 2. Cardiomegaly. 3. Enlargement of the pulmonary trunk consistent with pulmonary arterial hypertension. 4. A large heterogeneous uterus containing multiple masses including what appears to be an exophytic anterior left pelvic mass and a second cystic mass seen within the upper left pelvis. These are likely related to leiomyomas. Outpatient followup imaging recommended. 5. Diverticulosis without diverticulitis. Dg Garcia MD Chest X-Ray 12/10/161723 Signed Impressions: Service Date/Time: Alphonse, December 10, 2016 17:37 - CONCLUSION: No acute disease. Dg Garcia MD Course EKGs Normal sinus rhythm, moderate T-wave inversion- compared to last EKG and unchanged Assessment and Plan Assessment and Plan #1 Atypical chest pain-admitted to chest pain center. Ruled out with 3 sets of EKGs, cardiac enzymes, CTA aorta, and monitored overnight. Seen and evaluated by Dr. Patience Laguna. Call placed to patients yeast maker, Dr. Morales, to notify of patient's arrival to chest pain center for further recommendation. Current symptoms atypical for chest pain most likely GI related. #2 GERD-omeprazole prescription given at discharge, follow-up with PCP #3 Hypertension-continue amlodipine, continue to monitor #4 CADcontinue Imdur, aspirin, Effient, and Crestor 10:25 Dr. Morales seen and spoke with patient. Net Maker okay for discharge with follow up later today. Plans for cardiac catheterization , not for current symptoms but for progressive worsening angina previously discussed at last week's appointment. Patient agreeable to plan of care. Venus Murrieta Dec 11, 2016 08:14
[2016-12-11] MEDS ORDERED: NITROGLYCERIN 0.4 MG SL 25 TABS/BTL SL PRN (08:15)
[2016-12-11] MEDS ORDERED: ISOSORBIDE MONONITRATE 20 MG TAB PO SCH (09:00)
[2016-12-11] MEDS ORDERED: predniSONE 20 MG TAB PO SCH (09:00)
[2016-12-11] MEDS ORDERED: ATORVASTATIN 80 MG TAB PO SCH (09:00)
[2016-12-11] MEDS ORDERED: [UNRECOGNIZED DRUG - OTHER] INH SCH (09:00)
[2016-12-11] MEDS ORDERED: SPIRONOLACTONE 25 MG TAB PO SCH (09:00)
[2016-12-11] MEDS ORDERED: FLUTICASONE SALMETEROL INH SCH (09:00)
[2016-12-11] MEDS ORDERED: LABETALOL HCL 200 MG TAB PO SCH (09:00)
[2016-12-11] MEDS ORDERED: PILL SPLITTER OTHER PRN (09:30)
[2016-12-11] MEDS: SODIUM CHLORIDE 0.9% FLUSH 10 ML FLUSH IV FLUSH SCH (09:44)
[2016-12-11] MEDS ORDERED: OMEP40CA2 PO (10:26)
--- NOTE | 2016-12-11 10:44 | HHI.DCPOC ---
Discharge Care Plan Diagnosis: (1) GERD (gastroesophageal reflux disease) (2) Hx of coronary artery disease Goals to Promote Your Health * To prevent worsening of your condition and complications * To maintain your health at the optimal level Directions to Meet Your Goals Take your medications as prescribed Follow your dietary instruction Follow activity as directed Keep your appointments as scheduled Take your immunizations and boosters as scheduled If your symptoms worsen call your PCP, if no PCP go to Urgent Care Center or Emergency Room Smoking is Dangerous to Your Health. Avoid second hand smoke Call the 24-hour hour crisis hotline for domestic abuse at Venus Murrieta Dec 11, 2016 10:43
--- NOTE | 2016-12-11 12:15 | EKG ---
Date Performed: 12/11/2016 Time Performed: 04:47:45 PTAGE: 56 years EKG: Sinus rhythm MODERATE T-WAVE ABNORMALITY, CONSIDER LATERAL ISCHEMIA ABNORMAL ECG Since previous tracing, no signi ficant change noted NO PREVIOUS TRACING DOCTOR: Patience Laguna Interpretating Date/Time 12/11/2016 12:14:02
--- NOTE | 2016-12-11 12:15 | EKG ---
Date Performed: 12/10/2016 Time Performed: 23:28:58 PTAGE: 56 years EKG: Sinus rhythm MODERATE INTRAVENTRICULAR CONDUCTION DELAY ST DEVIATION AND MODERATE T-WAVE ABNORMALITY, CONSIDER AN TEROLATERAL ISCHEMIA ABNORMAL ECG Since PREVIOUS TRACING , no significant change noted PREVIOUS TRACIN12/10/2016 23.28 DOCTOR: Patience Laguna Interpretating Date/Time 12/11/2016 12:14:59
--- NOTE | 2016-12-11 12:16 | EKG ---
Date Performed: 12/10/2016 Time Performed: 20:54:50 PTAGE: 56 years EKG: SINUS BRADYCARDIA WITH SINUS ARRHYTHMIA MODERATE T-WAVE ABNORMALITY, CONSIDER ANTEROLATERAL ISCHEMIA ABNORMAL ECG PREVIOUS TRACING : 12/10/2016 17.42 Since previous tracing, no significant change noted DOCTOR: Patience Laguna Interpretating Date/Time 12/11/2016 12:15:27
--- NOTE | 2016-12-11 12:19 | EKG ---
Date Performed: 12/10/2016 Time Performed: 17:42:56 PTAGE: 56 years EKG: Sinus rhythm ST DEVIATION AND MODERATE T-WAVE ABNORMALITY, CONSIDER LATERAL ISCHEMIA ABNORMAL ECG Since PREVIOUS TRACING , no significant change noted PREVIOUS TRACIN11/26/2015 06.26 DOCTOR: Patience Laguna Interpretating Date/Time 12/11/2016 12:17:21
--- NOTE | 2016-12-11 12:56 | MB ---
cc: RONAK STEIN M.D. DATE OF CONSULTATION December 11, 2016 REASON FOR CONSULTATION Chest pain. HISTORY Ms. Rao is a 56-year-old -L[place]anese female well-known to me with history of coronary artery disease, chronic stable angina pectoris, ischemic cardiomyopathy, paroxysmal atrial fibrillation and flutter status post ablation, and hypertensive heart disease. The patient was referred to the emergency room yesterday because of an anterior sharp shooting chest discomfort that radiated through to her back. This has been occurring intermittently and appears to be related to position such as lying down or meals. She has also been having exertional angina which I discussed with her when I saw her in the office about two weeks ago. Her isosorbide dose was increased at that time but she says it gave her a headache and she reduced it back to her previous dose. She has not had any angina type symptoms over the past 24 hours but says they come on with any exertion or exercise. They also come on with emotional stress. She has been taking her other medications as directed. She is currently sitting up in bed and asymptomatic. All of her cardiac enzymes since admission have been negative. Her EKGs are unchanged from her office EKGs. She underwent some imaging studies including a CTA of the aorta yesterday to rule out any aortic pathology and that was negative. MEDICATIONS 1. Prasugrel 10 mg at bedtime. 2. Isosorbide mononitrate 30 mg b.i.d. and I had increased it to 60 mg b.i.d. at her last visit back on November 27. 3. Labetalol 400 mg p.o. t.i.d. 4. Deltasone 20 mg daily. 5. Spironolactone 25 mg b.i.d. 6. Lipitor 80 mg daily. 7. Aspirin 325 mg given on admission and 81 mg daily at home. 8. She was given a dose of famotidine 20 mg IV x 1. 9. She was treated pre-CTA with methylprednisolone and Benadryl yesterday for her reported allergy to contrast. ALLERGIES ATIVAN. CIPRO. CODEINE. INTRAVENOUS CONTRAST. DARVOCET N100. DARVON. LATEX. MORPHINE. PHENERGAN. REGLAN. PAST SURGICAL HISTORY 1. Coronary artery bypass grafting x 2 vessels with a right internal mammary graft to the RCA and PDA, February 06, 2008. The distal portion of that is known to be occluded by cardiac catheterization in November of 2015. She has moderate disease in the circumflex as well which was evaluated last year with FFR examination and medical therapy was continued. 2. She has history of two C-sections. 3. Cervical fusion. 4. Hernia repair. 5. Breast lump removal x 3. 6. D&Cs and blood transfusions. 7. She has had an implantable loop recorder for evaluation of palpitations and recurrent atrial arrhythmias. 8. Previous atrial fibrillation ablation. FAMILY HISTORY Noncontributory. SOCIAL HISTORY The patient is living with her mother who creates a lot of stress for her. She has history of tobacco use but quit over 11 years ago. Denies alcohol or illicit drug use. REVIEW OF SYSTEMS Some lower extremity edema at times, currently stable. Denies claudication. Denies lightheadedness or syncope. Denies fevers, chills, night sweats, nausea, vomiting, diarrhea. Denies bleeding or clotting disorders. Except for that mentioned in the HPI, her complete 12-point review of systems otherwise is negative. PHYSICAL EXAMINATION GENERAL: An obese middle-aged -L[place]anese female sitting up in bed in no distress at this time. VITAL SIGNS: Blood pressure 142/78 mmHg, heart rate is 70 and regular, respiratory rate 20, temperature 97.8, oxygen saturation 95% on room air. HEENT: Head is normocephalic and atraumatic. Pupils equal, round and reactive to light. Sclerae anicteric. Extraocular movements intact. NECK: Supple. There is no adenopathy. There is no jugular venous distention at 90 degrees. Carotid upstrokes are normal. No bruits. Thyroid exam is normal. LUNGS: Clear. HEART: PMI is not displaced. S1-S2 normal. No murmurs, gallops, clicks or rubs. ABDOMEN: Obese. Bowel sounds present. There is tenderness in the epigastrium that reproduces some of her discomfort. There is no hepatosplenomegaly, masses or bruits appreciated. EXTREMITIES: No cyanosis, clubbing or edema. Perfusion is adequate in the upper and lower extremities. NEUROLOGIC EXAM: Grossly intact. EKG Sinus rhythm, rate 83, diffuse T-wave abnormalities, abnormal EKG. No change since admission and no change from previous EKGs in my office. IMAGING STUDIES Chest x-ray from yesterday - No acute disease. IMAGING STUDIES Aortic CTA shows no aortic aneurysm or dissection. Cardiomegaly. Enlargement of the pulmonary trunk consistent with pulmonary arterial hypertension. LABORATORY DATA Cardiac enzymes negative x 3 sets with most recently a CPK of 99 and a troponin-I of less than 0.02. BNP 44. BUN 29, creatinine 1.7, magnesium 2.1. Electrolytes normal. CBC normal. Coags normal. IMPRESSION 1. Atypical chest pain, suspect some of which is musculoskeletal in etiology and some of which is probably related to GI etiology and her history of hiatal hernia and reflux. 2. ASHD with angina pectoris functional Class II-III. 3. Hypertensive heart disease, currently well-controlled. 4. Abnormal EKG, chronic and stable. 5. History of paroxysmal atrial fibrillation/flutter status post ablation currently in sinus rhythm. 6. Status post CABG x 2 vessels with a free right internal mammary graft to right coronary artery which is partially patent based upon cardiac catheterization last year. 7. Moderate circumflex artery disease. 8. CKD. 9. Hyperlipidemia. 10. Lupus. 11. Obesity. I have had a long discussion with the patient. I think the symptoms that she was evaluated for here are not cardiac in etiology but she is having a moderate amount of exertional angina which is impairing her lifestyle. We will let her go home today. She is going to retry the increased dose of isosorbide [address] her on some omeprazole for her GI symptoms. 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 I will plan an outpatient cardiac catheterization for reevaluation of her circumflex artery disease to be sure that has not progressed or whether or not we can improve her symptoms with percutaneous coronary intervention. Discussed the indications, benefits and risks with her in detail. She understands these risks including acute myocardial infarction, VT/VF, , arterial injury, bleeding, stroke, and possible need for repeat open heart surgery and emergency surgery. She is agreeing and willing to proceed as planned. I will schedule this morning here at [place] scheduling permitting. She will be prepared also for contrast allergy. She will call me between now and then if she is having any progression of her symptoms. I have discussed the case in detail with Venus Murrieta in the emergency room. Thank you for allowing me to participate in the care of this patient. Ronak MD MARIA E Juarez/SKIP /10:49 AM /12:41 PM
[2016-12-11] MEDS ORDERED: PRASUGREL 10 MG TAB PO SCH (21:00)
== END 2016-12-11 12:22 | disposition home or self-care (01) ==
LOC: NEPC 17:14 → NEDA 19:55 → NEPHCDU 21:52
PROVIDERS: ADMIT Internal Medicine Cardiovascular Disease; ATTEND Internal Medicine Cardiovascular Disease
DX: R07.89 Other chest pain (principal); K21.9 Gastro-esophageal reflux disease without esophagitis; I25.119 Atherosclerotic heart disease of native coronary artery with unspecified angina pectoris; Z95.1 Presence of aortocoronary bypass graft; E78.5 Hyperlipidemia, unspecified; M32.9 Systemic lupus erythematosus, unspecified; Z79.01 Long term (current) use of anticoagulants; I48.0 Paroxysmal atrial fibrillation; I25.2 Old myocardial infarction; I25.5 Ischemic cardiomyopathy; J44.9 Chronic obstructive pulmonary disease, unspecified; I13.0 Hypertensive heart and chronic kidney disease with heart failure and stage 1 through stage 4 chronic kidney disease, or unspecified chronic kidney disease; I50.9 Heart failure, unspecified; N18.9 Chronic kidney disease, unspecified; F41.9 Anxiety disorder, unspecified; D64.9 Anemia, unspecified; E66.9 Obesity, unspecified; E04.9 Nontoxic goiter, unspecified; J45.909 Unspecified asthma, uncomplicated; R94.31 Abnormal electrocardiogram [ECG] [EKG]; Z79.82 Long term (current) use of aspirin; Z79.899 Other long term (current) drug therapy; Z87.891 Personal history of nicotine dependence; M19.90 Unspecified osteoarthritis, unspecified site; Z68.42 Body mass index [BMI] 45.0-49.9, adult
CPT/HCPCS: 71010; 71275; 74174; 80053; 82550; 82552; 83690; 83735; 83880; 84484; 85025; 85610; 85730; 86850; 86900; 86901; 86902; 86920; 86922; 93005; 96361; 96374; 96375; 99285; G0378; J1200; J2930; J7030; Q9967

== ENCOUNTER 2016-12-13 05:54 | Day surgery (SDC) | payer MEDICARE, MEDICAID ==
[~2016-12-13] VITALS: Ht 165.1 cm; Wt 127.0 kg
[~2016-12-13 05:54] MED LIST changes: -ACET325S8 PR; +ADVA230A INH; -ADVA230A PO; -ADVAI250I PO; +AMLO5TAB2 PO; -AMLO5TAB96 PO; +ASPI81TA81; -ECOT81TA2 PO; +HYDR-3516 PO; -HYDR10SO PO; +ISOS20TA PO; -ISOSM20 PO; -LEVA0.3113 NEB; +LEVA3NEB12 NEB; +NITRSPR6; +OMEP40CA2 PO; +PRAS10TA PO; +TORS20TA PO; +TYLE325T PO; -VITA400C28
[2016-12-13] MEDS ORDERED: SODIUM CHLOR 0.9% 1000 ML INJ 1,000 ML IV SCH ×2 (06:00→10:43)
[2016-12-13] MEDS ORDERED: diphenhydrAMINE HCL 50 MG/ML VIAL IV SCH (06:00)
[2016-12-13] MEDS ORDERED: MIDAZOLAM HCL 2 MG/2 ML VIAL IV SCH (06:00)
[2016-12-13] MEDS ORDERED: ASPIRIN 325 MG TAB PO SCH (06:00)
[2016-12-13 07:21] VITALS: BP 214/112; PULSE 52; RESP 18; TEMP 98.2; O2SAT 98
[2016-12-13] MEDS ORDERED: IOHEXOL 350 MG/ML 100 ML BTL (for Cath Lab) OTHER ONE (08:03)
[2016-12-13] MEDS ORDERED: IOHEXOL 350 MG/ML 50 ML BTL (for Cath Lab) OTHER ONE (08:03)
[2016-12-13] MEDS ORDERED: HEPARIN-NS/PF INJ 500 ML ONE (08:05)
[2016-12-13] MEDS ORDERED: diphenhydrAMINE HCL 50 MG/ML VIAL ONE (08:05)
[2016-12-13] MEDS ORDERED: HYDROCORTISONE SOD SUCCINATE 100 MG VIAL ONE (08:06)
[2016-12-13] MEDS ORDERED: MIDAZOLAM HCL 2 MG/2 ML VIAL ONE ×2 (08:06→08:24)
[2016-12-13] MEDS ORDERED: HEPARIN SODIUM - IV 10,000 UNITS/10 ML VIAL ONE ×2 (08:12→09:37)
[2016-12-13] MEDS ORDERED: VERAPAMIL HCL 5 MG/2 ML VIAL ONE (08:12)
[2016-12-13] MEDS ORDERED: LABETALOL HCL 100 MG/20 ML VIAL ONE (08:20)
[2016-12-13] MEDS ORDERED: hydrALAZINE HCL 20 MG/ML VIAL ONE ×2 (08:38→09:02)
[2016-12-13 09:03] LABS: BICARBONATE 26.9 MEQ/L (21.0-32.0)
[2016-12-13 09:05] LABS: POTASSIUM 4.8 MEQ/L (3.5-5.1)
--- NOTE | 2016-12-13 10:37 | CATHPROC ---
[facility] HIS Report Study Information Study Number Admission Scheduled Start Study Start [id number] Dec 13 2016 5:54AM 12/13/2016 Dec 13 2016 8:10AM [place] [facility] Cardiac Catheterization Admit Source Facility Department Other [facility] Physician and Clinical Staff Initial Donny Randle Elevator Service TechnicianMerari Hitchcock RN Elevator Service Technicianveronica March RN, Gio RecordJacoby Alvarez RCIS(BS) Scrub Donny Montano,RT(R) Procedures Performed Procedure Location (Site) Vessel Name Coronary Angiograms LCA Left Coronary Coronary Angiograms TYLER-RPDA Left Coronary Drug Eluting Inflatio OM1 Prox CIRC L Heart Cath PTCA OM1 Prox CIRC Wire insertion Radial (right) Radial Art. 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 Description Size Mfg Part Number Used/Scraped STENT, 3.25 X 15MM XIENCE [id number] 09:06 [employer] 3.25 X 15 Used ALPINE *[id number] WIRE, BALANCE MIDDLEWEIGHT [id number] 09:22 [employer] 190CM Used 190CM *[id number] WIRE, BALANCE MIDDLEWEIGHT [id number] 08:56 [employer] 190CM Used 190CM (GRIS) *[id number] WIRE, BALANCE MIDDLEWEIGHT [id number] 09:10 [employer] 190CM Used 190CM (GRIS) *[id number] WIRE, WHISPER W/HYDROCOAT [id number] 09:30 [employer] 190CM Used 190CM *[id number] WIRE, WHISPER W/HYDROCOAT [id number] 09:33 [employer] 190CM Used 190CM *[id number] TRANSDUCER, TRUWAVE [id number] 08:25 ROBLEDO LOWERY * Used W/STOCKCOCK *[id number] [id number] *[id number] [id number] *[id number] *[id number] 08:25 MALLINCKRODT SYRINGE, ANGIOMAT 150ML 150ML *[id number] Used 2SUB [id number] 08:25 [employer] PACK, CCL CUSTOM * Used *[id number] 08:25 [employer] SUPPORT, ARTERIAL ADULT 58045 Used [id number] 08:25 MEDLINE PACER PEN, SKIN DUAL W/ RULER * Used *[id number] BALLOON, 3.25 X 12MM UT [id number] 09:02 [employer] 12MM Used EUPHORA *[id number] 09:03 [employer] 30 LARRY INDEFLATOR Used *[id number] BAND, RADIAL COMPRESSION TR [id number] 10:13 [employer] MEDICAL 29CM Used LARGE 29 *[id number] 08:25 [employer] WIRE, EXCHANGE 260CM 3MMJ 260CM Used *[id number] 08:25 NAMIC MANIFOLD, 4 PORT * Used *[id number] 08:25 [employer]COMED OMNIPAQUE, 350 MG, 150ML 150ML [id number] Used [id number] 08:25 [facility] [place] BLANKET,WARM AIR CCL * Used *[id number] CATHETER, FR5 OPTITORQUE [id number] 08:25 [facility] FR 5 Used RADIAL TIG 4.0 *[id number] SHEATH, FR6 TRANSRADIAL RM*[id number] 08:25 [facility] FR 6 Used SLENDER 10CM *[id number] Equipment Model, Serial, Lot Number and Expiration Data Description Model Number Serial Number Lot Number Expiration Date STENT, 3.25 X 15MM XIENCE [id number] 01-09-2018 ALPINE History: Allergies Allergy Reaction Ativan AGITATION Cipro Codeine NAUSEA/VOMITING Contrast Media RASH Darvocet-N 100 NAUSEA/VOMITING Darvon NAUSEA/VOMITING Latex RASH Morphine Rash Phenergan AGITATION Reglan AGITATION History: Risk Factors Family History of Hypertension Dyslipidemia Previous [place] Previous Heart Failure Premature CAD Yes Yes No Yes Yes Prior Valve Prior PCI Prior PCIDate Prior CABG Prior CABGDate Surgery No Yes 11/18/2015 Yes 05/20/2007 Cerebrovascular Peripheral Artery Chronic Lung On Dialysis Diabetes Disease Disease Disease No No No Yes No History: Symptoms/Diagnosis Selection Items Chest pain History: Stress Tests Stress or Imaging Studies Performed No History: Other Current Smoker Method Quit Packs a Day Years Used Pack Years No Cigarettes 11 Years Ago 1 7 7 Labs Hgb (g/dl) Hct (%) WBC (l/cumm) Platelets (thousands) 11.60-17.00 35.00-51.00 4.00-11.00 150.00-450.00 14.0 41.4 11.1 220 Glucose (mg/dl) BUN (mg/dl) Creatinine (mg/dl) BUN:Creatinine (1:x) 74.00-106.00 7.00-18.00 0.50-1.30 10.00-20.00 105 29 1.7 17.1 Na (meq/l) K (meq/l) 136.00-145.00 3.50-5.10 140 3.5 INR (PTT:PT) 0.90-1.10 1 Troponin I (ng/ml) CPK-MB (ng/ML) 0.02-0.05 0.50-3.60 0.02 7.7 Medication Medication Total Dose (Bolus/Oral) Medication Total Dosage/Unit 1% XYLOCAINE 5 mL BENADRYL 25 mg FENTANYL 150 mcg HEPARIN 96403 units HYDRALAZINE 40 mg LABETOLOL 20 mg NTG (IC) 200 mcg RADIAL COCKTAIL 10 mL (Bolus) SOLU-CORTEF 100 mg VERSED 4 mg Medications (Bolus/Oral) Medication Time Given Dosage/Unit Administered By Reason SOLU-CORTEF 12/13/2016 8:08:00 AM 100 mg Van Loweryantha 100 mg SOLU-CORTEF given in lab by Merari Lowery RN in Right Hand via Peripheral IV. Ordered by Donny Walls. BENADRYL 12/13/2016 8:09:44 AM 25 mg Rebecca Lowerya 25 mg BENADRYL given in lab by Merari Lowery RN in Right Hand via Peripheral IV. Ordered by Donny Breen. VERSED 12/13/2016 8:10:00 AM 1 mg Rebecca Lowerya 1 mg VERSED given in lab by Merari Lowery RN in Right Hand via Peripheral IV. Ordered by Donny Mixon. LABETOLOL 12/13/2016 8:22:00 AM 20 mg Rebecca Lowerya 20 mg LABETOLOL given in lab by Merari Lowery RN in Right Hand via Peripheral IV. Ordered by Donny Peoples. 1% XYLOCAINE 12/13/2016 8:22:44 AM 5 mL Donny Walls 5 mL 1% XYLOCAINE given in lab by Donny Walls in Right Radial via Subcutaneous. Ordered by Donny Chong. VERSED 12/13/2016 8:23:05 AM 1 mg Rebecca Lowerya 1 mg VERSED given in lab by Merari Lowery RN in Right Hand via Peripheral IV. Ordered by Donny Mixon. FENTANYL 12/13/2016 8:24:55 AM 25 mcg Merari Lowery 25 mcg FENTANYL given in lab by Merari Lowery RN via Peripheral IV. Ordered by Donny Walls. FENTANYL 12/13/2016 8:30:05 AM 25 mcg Merari Lowery 25 mcg FENTANYL given in lab by Merari Lowery RN via Peripheral IV. Ordered by Donny Walls. Ntg 200mcg Verapamil 2.5mg Heparin RADIAL COCKTAIL 12/13/2016 8:34:04 AM 5 mL (Bolus) Donny Walls 2500U 5 mL (Bolus) RADIAL COCKTAIL given in lab by Donny Walls in Right Radial via Radial. Using [Solu tion Name]. Ordered by Donny Walls. Reason: Ntg 200mcg Verapamil 2.5mg Heparin 2500U. HYDRALAZINE 12/13/2016 8:39:24 AM 20 mg Merari Lowery 20 mg HYDRALAZINE given in lab by Merari Lowery RN in Right Hand via Peripheral IV. Ordered by Donny Soliman. HEPARIN 12/13/2016 8:47:34 AM 5000 units Merari Lowery 5000 units HEPARIN given in lab by Merari Lowery RN in Right Hand via Peripheral IV. Ordered by Donny Walls. Ntg 200mcg Verapamil 2.5mg Heparin RADIAL COCKTAIL 12/13/2016 8:53:58 AM 5 mL (Bolus) Donny Walls 2500U 5 mL (Bolus) RADIAL COCKTAIL given in lab by Donny Walls in Right Radial via Radial. Using [Solu tion Name]. Ordered by Donny Walls. Reason: Ntg 200mcg Verapamil 2.5mg Heparin 2500U. VERSED 12/13/2016 8:54:24 AM 1 mg Merari Lowery 1 mg VERSED given in lab by Merari Lowery RN in Right Hand via Peripheral IV. Ordered by Donny Mixon. FENTANYL 12/13/2016 8:55:00 AM 25 mcg Merari Lowery 25 mcg FENTANYL given in lab by Merari Lowery RN in Right Hand via Peripheral IV. Ordered by Donny Peoples. HYDRALAZINE 12/13/2016 9:03:25 AM 20 mg Merari Lowery 20 mg HYDRALAZINE given in lab by Merari Lowery RN in Right Hand via Peripheral IV. Ordered by Donny Soliman. HEPARIN 12/13/2016 9:06:00 AM 2500 units Merari Lowery 2500 units HEPARIN given in lab by Merari Lowery RN in Right Hand via Peripheral IV. Ordered by Donny Walls. NTG (IC) 12/13/2016 9:11:46 AM 200 mcg Donny Walls 200 mcg NTG (IC) given in lab by Donny Walls via Intra-coronary. Ordered by Donny Walls. FENTANYL 12/13/2016 9:12:55 AM 25 mcg Merari Lowery 25 mcg FENTANYL given in lab by Merari Lowery RN via Peripheral IV. Ordered by Donny Walls. VERSED 12/13/2016 9:32:44 AM 1 mg Merari Lowery 1 mg VERSED given in lab by Merari Lowery RN in Right Hand via Peripheral IV. Ordered by Donny Mixon. HEPARIN 12/13/2016 9:38:02 AM 2000 units Merari Lowery 2000 units HEPARIN given in lab by Merari Lowery RN in Right Hand via Peripheral IV. Ordered by Donny Walls. HEPARIN 12/13/2016 9:59:00 AM 2500 units Merari Lowery 2500 units HEPARIN given in lab by Merari Lowery RN in Right Hand via Peripheral IV. Ordered by Donny Walls. FENTANYL 12/13/2016 10:24:34 AM 50 mcg Merari Lowery 50 mcg FENTANYL given in lab by Merari Lowery RN via Peripheral IV. Ordered by Donny Walls. Medication (Drip) Medication Time Given Dosage/Unit Concentration/Unit Diluent (ml) Solution IV Solutions 12/13/2016 8:13:32 AM 0 mL (IV) 500 NaCl .9 Patient arrived on IV Solutions in Right Hand via Peripheral IV. Pump/Drip Flow = 20 ml/hr using NaCl .9. Ordered by Donny Walls. Initial Case Assessment Cardiovascular HR Rhythm NIBP Chest Pain 60 SR 206/117 0 Edema Present Skin color Skin None Normal Warm Dry Circulatory - Right Pulses Dorsalis Pedis Femoral Radial 1 2 2 Scale (0,1,2,3,4,d) Circulatory - Left Pulses Dorsalis Pedis Femoral Radial 1 2 Scale (0,1,2,3,4,d) Circulatory - Lower Extremities Color Lower Right Color Lower Left Normal Normal Neurological State Oriented to time-place- Alert Moves all extremities person Respiration - General Respiration Rate SpO2 (%) (B/min) 17 94 Final Case Assessment Cardiovascular HR Rhythm NIBP Chest Pain 60 SR 206/117 0 Edema Present Skin color Skin None Normal Warm Dry Circulatory - Right Pulses Dorsalis Pedis Femoral Radial 1 2 2 Scale (0,1,2,3,4,d) Circulatory - Left Pulses Dorsalis Pedis Femoral Radial 1 2 Scale (0,1,2,3,4,d) Circulatory - Lower Extremities Color Lower Right Color Lower Left Normal Normal Neurological State Oriented to time-place- Alert Moves all extremities person Respiration - General Respiration Rate SpO2 (%) (B/min) 17 94 Chronological Log Time Study Chronological Log 8:00:00 MD arrived. 8:02:34 Patient arrived via Bed. 8:02:35 Patient Name, D.O.B, / Armband Verified By R.N. 8:02:36 Consent signed by the physician and the patient and verified by the [facility] staff. 8:02:37 Pre-op and post- op instructions given; patient acknowledges understanding of instructions. 8:02:54 Allens test performed on the right radial and ulnar artery. Vitals capture started with the following parameters, Patient=Adult, Interval=5 min, Initial Pr busafn=984 mmHg, 8:02:56 Deflation Rate=5 mmHg 8:03:03 Patient has been NPO for Less than 6Hrs. 8:03:04 Skin Breakdown- 8:03:17 Patient Warmer Placed on the Table. 100 mg SOLU-CORTEF given in lab by Merari Lowery, RN in Right Hand via Peripheral IV. Order ed by Titi 8:08:00 Donny. 8:09:44 25 mg BENADRYL given in lab by Merari Lowery, RN in Right Hand via Peripheral IV. Order ed by Donny Walls. 8:10:00 1 mg VERSED given in lab by Merari Lowery, RN in Right Hand via Peripheral IV. Ordered by Mark. Titi 8:13:31 A # 22 IV was noted in the Hand (right). Grade = 0 Patient arrived on IV Solutions in Right Hand via Peripheral IV. Pump/Drip Flow = 20 ml/hr using NaCl .9. Ordered by 8:13:32 Donny Walls. 8:13:33 History and physical on the chart or being dictated. 8:15:01 HR=58 bpm, SJRV=472/117 mmhg, SpO2=99.0 %, Resp=16 B/min, Pain=0, Marcie=10, Ryan=1 8:16:19 Right Radial and groin(s) prepped with 2% chlorhexidine, and with a 3 min. waiting time. Assessment: Initial Case, HR=60 BPM, Rhythm=SR, NAEE=411/117 mmhg, Chest Pain=0, Edema=None, Color=Normal, Skin = Warm, Dry Right Pulses: Artur Ped=1, Femoral=2, Radial=2 Left Pulses: Artur Ped=1, Femoral=2 8:16:21 Lower Right Extremities: Color=Normal Lower Left Extremities: Color=Normal Neurological: State=Alert, Ox3, CABRERA Respiration: Resp=17 B/min, SpO2=94 % 8:18:44 HR=55 bpm, ZPLQ=576/113 mmhg, SpO2=99.0 %, Resp=15 B/min, Pain=0, Marcie=10, Ryan=1 Time Out. Correct patient, correct procedure,correct physician, power injector not loaded with c ontrast with surgical 8:21:55 team present. Time Out Concurred by MD, individual staff in procedure 8:22:00 20 mg LABETOLOL given in lab by Merari Lowery, JOANNE in Right Hand via Peripheral IV. Order ed by Donny Walls. 8:22:27 Case Start 8:22:44 5 mL 1% XYLOCAINE given in lab by Donny Walls in Right Radial via Subcutaneous. Ordered by Donny Walls. 8:23:05 1 mg VERSED given in lab by Merari Lowery, RN in Right Hand via Peripheral IV. Ordered b Donny Ridley. 8:23:47 HR=59 bpm, EVOE=579/117 mmhg, SpO2=99.0 %, Resp=15 B/min, Pain=0, Marcie=10, Ryan=1 8:24:55 25 mcg FENTANYL given in lab by Lowery, Merari, RN via Peripheral IV. Ordered by Donny Patel. 8:25:38 Pressure channel 1 zeroed. 8:28:48 HR=56 bpm, PLJT=236/107 mmhg, SpO2=96.0 %, Resp=11 B/min, Pain=0, Marcie=10, Ryan=1 8:30:05 25 mcg FENTANYL given in lab by Merari Lowery RN via Peripheral IV. Ordered by Donny Patel. 8:31:17 Reference ECG taken 8:33:25 Access site was RIGHT Radial Artery. A SHEATH, FR6 TRANSRADIAL SLENDER 10CM FR 6 was advanced into the Radial (right) using the Danielu barrington 8:33:44 technique. 8:33:45 HR=56 bpm, AVPW=628/110 mmhg, SpO2=96.0 %, Resp=13 B/min, Pain=0, Marcie=10, Ryan=1 5 mL (Bolus) RADIAL COCKTAIL given in lab by Donny Walls in Right Radial via Radial. Using [Solution Name]. 8:34:04 Ordered by Donny Walls. Reason: Ntg 200mcg Verapamil 2.5mg Heparin 2500U. A CATHETER, FR5 OPTITORQUE RADIAL TIG 4.0 FR 5 was advanced over a wire. OMNIPAQUE, 350 MG, 150M L 150ML 8:37:20 was used for injections. 8:38:46 HR=57 bpm, MCAF=827/95 mmhg, SpO2=95.0 %, Resp=12 B/min, Pain=0, Marcie=10, Ryan=1 20 mg HYDRALAZINE given in lab by Merari Lowery RN in Right Hand via Peripheral IV. Ordered by Titi 8:39:24 Donny. Recorded Pressure: Ao, HR=61, Condition=Condition 1 8:43:14 (Aorta) Ao 169/87/119 8:43:30 The LCA was injected and visualized at various angles. OMNIPAQUE, 350 MG, 150ML 150ML used. 8:43:39 HR=59 bpm, FWTW=053/90 mmhg, SpO2=98.0 %, Resp=14 B/min, Pain=0, Marcie=10, Ryan=1 After removing the current catheter a AR MOD INFINITI CATHETER FR 6 was advanced over a WIRE, EX CHANGE 260CM 8:46:55 3MMJ 260CM. 5000 units HEPARIN given in lab by Merari oLwery, RN in Right Hand via Peripheral IV. Ordere d by Titi 8:47:34 Donny. 8:48:42 HR=59 bpm, JFZP=369/89 mmhg, SpO2=97.0 %, Resp=12 B/min, Pain=0, Marcie=10, Ryan=1 After removing the current catheter a MPB-2 INFINITI CATHETER FR 6 was advanced over a WIRE, EXC HANGE 260CM 8:50:45 3MMJ 260CM. 8:51:28 The TYLER-RPDA was injected and visualized at various angles. OMNIPAQUE, 350 MG, 150ML 150ML used. After removing the current catheter a XB 4.0 GUIDE CATHETER FR 6 was advanced over a WIRE, EXCHA NGE 260CM 8:52:03 3MMJ 260CM. 8:53:41 HR=63 bpm, LUCK=847/83 mmhg, SpO2=98.0 %, Resp=17 B/min, Pain=0, Marcie=10, Ryan=1 5 mL (Bolus) RADIAL COCKTAIL given in lab by Donny Walls in Right Radial via Radial. Using [Solution Name]. 8:53:58 Ordered by Donny Walls. Reason: Ntg 200mcg Verapamil 2.5mg Heparin 2500U. 8:54:24 1 mg VERSED given in lab by Merari Lowery, RN in Right Hand via Peripheral IV. Ordered b Donny Ridley. 8:55:00 25 mcg FENTANYL given in lab by Merari Lowery, JOANNE in Right Hand via Peripheral IV. Order ed by Donny Walls. 8:57:50 Activated Clotting Time Drawn 8:58:40 HR=62 bpm, AQLV=069/85 mmhg, SpO2=97.0 %, Resp=4 B/min, Pain=0, Marcie=10, Ryan=1 8:59:04 A WIRE, BALANCE MIDDLEWEIGHT 190CM (GRIS) 190CM was inserted via Radial (right). 9:01:45 Interventional wire has crossed the lesion A BALLOON, 3.25 X 12MM NC EUPHORA 12MM was inserted over WIRE, BALANCE MIDDLEWEIGHT 190CM (GRIS) 9:01:49 190CM via the Radial (right). A BALLOON, 3.25 X 12MM NC EUPHORA 12MM over a WIRE, BALANCE MIDDLEWEIGHT 190CM (GRIS) 190CM in t he 9:02:05 OM1 Prox was inflated using a 30 LARRY INDEFLATOR at 10 larry for 60 sec. 9:03:00 ACT (Normal Range 90-180) = 292 20 mg HYDRALAZINE given in lab by Merari Lowery RN in Right Hand via Peripheral IV. Ordered by Titi, 9:03:25 Donny. 9:03:39 HR=70 bpm, LNHP=972/88 mmhg, SpO2=97.0 %, Resp=6 B/min, Pain=0, Macrie=10, Ryan=1 9:04:33 Balloon Removed. A STENT, 3.25 X 15MM XIENCE ALPINE 3.25 X 15 was advanced through a XB 4.0 GUIDE CATHETER FR 6 o steven a WIRE, 9:05:10 BALANCE MIDDLEWEIGHT 190CM (GRIS) 190CM. 2500 units HEPARIN given in lab by Merari Lowery RN in Right Hand via Peripheral IV. Ordere d by Titi, 9:06:00 Donny. A STENT, 3.25 X 15MM XIENCE ALPINE 3.25 X 15 was deployed using a 30 LARRY INDEFLATOR at 14 atmosp heres for 9:06:55 40 seconds in the OM1 Prox. 9:08:32 Delivery device removed A BALLOON, 3.25 X 12MM NC EUPHORA 12MM was inserted over WIRE, BALANCE MIDDLEWEIGHT 190CM (GRIS) 9:08:38 190CM via the Radial (right). 9:09:19 HR=68 bpm, PAAW=962/83 mmhg, SpO2=97.0 %, Resp=14 B/min, Pain=0, Marcie=10, Ryan=1 A BALLOON, 3.25 X 12MM NC EUPHORA 12MM over a WIRE, BALANCE MIDDLEWEIGHT 190CM (GRIS) 190CM in t he 9:10:06 OM1 Prox was inflated using a 30 LARRY INDEFLATOR at 16 larry for 30 sec. 9:11:40 Balloon Removed. 9:11:46 200 mcg NTG (IC) given in lab by Donny Walls via Intra-coronary. Ordered by Donny Walls. 9:12:55 25 mcg FENTANYL given in lab by Merari Lowery, RN via Peripheral IV. Ordered by Donny Patel. 9:13:02 A WIRE, BALANCE MIDDLEWEIGHT 190CM (GRIS) 190CM was inserted via Radial (right). 9:13:42 HR=71 bpm, DPNA=952/72 mmhg, SpO2=96.0 %, Resp=12 B/min, Pain=0, Marcie=10, Ryan=1 9:18:39 HR=67 bpm, AEYL=910/80 mmhg, SpO2=96.0 %, Resp=13 B/min, Pain=0, Marcie=10, Ryan=1 9:22:13 2ND BMW(BLUE) Wire removed 9:22:18 A WIRE, BALANCE MIDDLEWEIGHT 190CM 190CM was inserted via Radial (right). 9:23:40 HR=70 bpm, EXMU=287/76 mmhg, SpO2=96.0 %, Resp=12 B/min, Pain=0, Marcie=10, Ryan=1 9:28:41 HR=68 bpm, YUXB=290/78 mmhg, SpO2=97.0 %, Resp=15 B/min, Pain=0, Marcie=10, Ryan=1 9:29:53 3RD BMW Wire removed 9:31:01 Activated Clotting Time Drawn 9:32:44 1 mg VERSED given in lab by Merari Lowery, RN in Right Hand via Peripheral IV. Ordered b Donny Ridley. 9:33:11 A WIRE, WHISPER W/HYDROCOAT 190CM 190CM was inserted via Radial (right). 9:33:40 HR=71 bpm, BLDH=549/87 mmhg, SpO2=97.0 %, Resp=13 B/min, Pain=0, Marcie=10, Ryan=1 9:36:45 ACT (Normal Range 90-180) = 287 2000 units HEPARIN given in lab by Merari Lowery, RN in Right Hand via Peripheral IV. Order ed by Titi 9:38:02 9:38:41 HR=66 bpm, IZCZ=288/81 mmhg, SpO2=97.0 %, Resp=16 B/min, Pain=0, Marcie=10, Ryan=1 A BALLOON, 3.25 X 12MM NC EUPHORA 12MM was inserted over WIRE, BALANCE MIDDLEWEIGHT 190CM (GRIS ) 9:38:57 190CM via the Radial (right). 9:42:55 WHISPER Wire removed 9:43:40 A WIRE, BALANCE MIDDLEWEIGHT 190CM 190CM was inserted via Radial (right). 9:44:29 HR=63 bpm, XYAL=817/78 mmhg, SpO2=96.0 %, Resp=11 B/min, Pain=0, Marcie=10, Ryan=1 9:48:45 HR=64 bpm, JITN=402/74 mmhg, SpO2=96.0 %, Resp=11 B/min, Pain=0, Marcie=10, Ryan=1 9:50:44 Balloon Removed. 9:50:57 Wire removed 9:51:21 A WIRE, BALANCE MIDDLEWEIGHT 190CM (GRIS) 190CM was inserted via Radial (right). 9:53:42 HR=64 bpm, HPBA=551/86 mmhg, SpO2=96.0 %, Resp=11 B/min, Pain=0, Marcie=10, Ryan=1 9:58:31 ACT (Normal Range 90-180) = 290 9:58:43 HR=61 bpm, LVQB=262/83 mmhg, SpO2=95.0 %, Resp=26 B/min, Pain=0, Marcie=10, Ryan=1 2500 units HEPARIN given in lab by Merari Lowery, RN in Right Hand via Peripheral IV. Order ed by Titi, 9:59:00 Donny. 10:03:44 HR=64 bpm, OIZA=621/76 mmhg, SpO2=94.0 %, Resp=11 B/min, Pain=0, Marcie=10, Ryan=1 10:08:45 HR=63 bpm, JZVJ=013/76 mmhg, SpO2=95.0 %, Resp=12 B/min, Pain=0, Marcie=10, Ryan=1 10:11:46 Wire removed 10:11:53 Catheter was removed 10:12:10 Case End Radial Compression Device Used. 15 mLs of air placed in BAND, RADIAL COMPRESSION TR LARGE 29 29 CM. Affected 10:12:12 hand 99 % O2 saturation. 10:12:47 Sterile dressing applied to site 10:12:48 No case complications noted. 10:12:49 Cine recording checked. 10:12:51 Bedside Report will be given. 10:12:52 Implantable Device card placed in patient's chart. 10:12:54 Contrast Scanned 10:12:57 A Left Heart Cath was performed. 10:13:42 HR=62 bpm, DWVN=634/83 mmhg, SpO2=96.0 %, Resp=15 B/min, Pain=0, Marcie=10, Ryan=1 10:18:43 HR=62 bpm, YEWJ=056/88 mmhg, SpO2=95.0 %, Resp=14 B/min, Pain=0, Marcie=10, Ryan=1 10:24:21 Vitals capture stopped. 10:24:34 50 mcg FENTANYL given in lab by Merari Lowery RN via Peripheral IV. Ordered by Donny Mixon. Assessment: Final Case, HR=60 BPM, Rhythm=SR, VIYU=169/117 mmhg, Chest Pain=0, Edema=None, [place] r=Normal, Skin = Warm, Dry Right Pulses: Artur Ped=1, Femoral=2, Radial=2 Left Pulses: Artur Ped=1, Femoral=2 10:28:28 Lower Right Extremities: Color=Normal Lower Left Extremities: Color=Normal Neurological: State=Alert, Ox3, CABRERA Respiration: Resp=17 B/min, SpO2=94 % 10:29:00 Patient moved to stretcher End Study - Contrast Media Used In Study Contrast Total Opened (mL) Total Used (mL) Total Wasted (mL) Omnipaque 110 110 0 End Study - Maximum Contrast Load Max Contrast Load (mL) 373.5 End Study - Radiation Exposure Fluoro Time (minutes) 58.0 End Study - Patient Disposition Complications Transferred To Interventional Outcome No Telemetry Bed successful
[2016-12-13] MEDS ORDERED: MISC INFORMATION XX ONE (10:45)
[2016-12-13] MEDS ORDERED: SODIUM CHLORIDE 0.9% FLUSH 10 ML FLUSH IV FLUSH PRN (10:45)
[2016-12-13] MEDS ORDERED: ACETAMINOPHEN 325 MG TAB PO ONE (12:00)
[2016-12-13] MEDS ORDERED: ALPRAZolam 0.25 MG TAB PO ONE (12:00)
[2016-12-13] MEDS ORDERED: LABETALOL HCL 200 MG TAB PO SCH (14:00)
[2016-12-13] MEDS ORDERED: RESP: ALBUTEROL 2.5 MG/3 ML NEB (SCH) INH (16:00)
[2016-12-13] MEDS ORDERED: ACETAMINOPHEN 325 MG TAB PO PRN (18:00)
[2016-12-13] MEDS ORDERED: SPIRONOLACTONE 25 MG TAB PO SCH (18:00)
[2016-12-13] MEDS ORDERED: ALPRAZolam 0.25 MG TAB PO PRN (20:00)
[2016-12-13] MEDS ORDERED: ISOSORBIDE MONONITRATE 20 MG TAB PO SCH (21:00)
[2016-12-13] MEDS ORDERED: PRASUGREL 10 MG TAB PO SCH (21:00)
[2016-12-13] MEDS ORDERED: cloNIDine HCL 0.2 MG TAB PO SCH (21:00)
[2016-12-14] MEDS ORDERED: ASPIRIN EC 81 MG TABEC PO SCH (09:00)
[2016-12-14] MEDS ORDERED: predniSONE 20 MG TAB PO SCH (09:00)
--- NOTE | 2016-12-14 23:23 | MP ---
cc: RONAK STEIN MD DATE OF SURGERY 12/13/16 PROCEDURE PERFORMED 1. Left heart catheterization. 2. Coronary arteriography. 3. Selective injection of free right internal mammary artery graft. 4. Percutaneous transluminal coronary angioplasty with drug eluting stent implant lateral circumflex artery. PROCEDURE TECHNIQUE The patient was brought to the cardiac catheterization laboratory and the area of the right wrist and right groin were prepped and draped in usual sterile manner. Following 5 mL of 1% Xylocaine for local anesthesia in the right wrist, the right radial artery was entered with a needle for placement of a floppy tip guidewire. A 6-Vietnamese introducer sheath was passed into the right radial artery and actively sutured in place. The usual radial artery cocktail including nitroglycerin, verapamil and heparin was utilized. Diagnostic study was performed with a Tig catheter as well as a AR Mode and multipurpose B2. Following diagnostic study it was decided to proceed with PCI of the left circumflex artery. The catheters were exchanged over a wire for an XB 4.0 guiding catheter which was passed through the left coronary arteries and guiding pictures taken. Through this, the patient was given heparin to maintain an ACT of 300 seconds. She has been on chronic Effient therapy and aspirin and she was given additional dose of aspirin this morning. With the use of a BMW 0.014 floppy wire was passed into the lateral circumflex artery without difficulty. Over this wire, initial balloon inflations were performed using a 3.25 NC 12 NC Eufora in the proximal portion of the lateral circumflex artery which was inflated one-time to a maximum pressure of 12 atmospheres for 1 minute. Balloon catheter was deflated and removed. Follow up stenting was performed with a Xience Alpine 3.25 x 15 mm drug-eluting stent. This was deployed at a maximum pressure of 15 atmospheres and follow up post inflations were performed again with the [place] NC balloon to a maximum pressure of 16 atmospheres in the proximal segment of the stent for up to 30 seconds. Balloon catheter was deflated and removed. No guidewire was left in place. Multiple attempts were made at wiring the distal circumflex which was very tortuous. There was a moderate to severe stenosis immediately beyond the takeoff of the lateral branch beyond the very tortuous area. Despite the use of multiple wires including a whisper, BMW, and attempts with the use of a balloon in the ostium of the lateral circumflex branch to facilitate steering of the guidewire was all unsuccessful. It was decided at that point to proceed no further, to limit intravenous contrast due to the patient's chronic renal insufficiency and either continue medical therapy or attempt this area of disease in the mid and distal circumflex artery at a later date. The guidewire was removed. Final pictures were taken. The guiding catheter was removed and a radial artery sheath removed and a wrist band placed for hemostasis. The patient tolerated procedure well. There were no immediate complications. HEMODYNAMIC RESULTS Left ventricle was not entered. For complete hemodynamic details, please see accompanying paperwork. The patient was moderately hypertensive throughout the procedure, required multiple doses of IV labetalol and hydralazine. ANGIOGRAPHIC FINDINGS LEFT VENTRICLE Not performed. RIGHT CORONARY ARTERY Dominant. 100% occluded in the proximal segment. The distal right coronary is filling via the partially patent free right internal mammary graft. This appears to fill the RV branch with collaterals to the distal right coronary artery noted. LEFT CORONARY ARTERY Left main trunk arises normally from left coronary sinus. The left main trunk is normal. LEFT ANTERIOR DESCENDING ARTERY The LAD is a moderate caliber vessel whose course is to the apex. The LAD gives rise to one major diagonal branch. There are moderate luminal irregularities throughout the LAD and there is a 15% proximal stenosis and 10-15% stenosis in the mid segment. The diagonal branch is moderate to large in caliber and has 15% proximal stenosis. CIRCUMFLEX Remains nondominant. The main circumflex gives rise to a lateral branch and a posterolateral branch. The main circumflex is severely tortuous in the mid segment. It has an 85% eccentric stenosis just beyond the takeoff of the lateral branch. There is a second area of tubular narrowing of up to 80% in the mid portion of the circumflex artery prior to the posterolateral branch. The lateral branch is large in caliber and has an 80% proximal stenosis. ANGIOGRAPHIC RESULTS In the circumflex artery lateral branch, a large vessel of approximately 3.7 mm in caliber there is a type B one lesion obstructing the lumen by up to 80% of its diameter. Following balloon inflations and stent implant, there is less than 0% residual lumen diameter stenosis. No intimal disruption is seen and distal flow was MARGARITA III at completion of procedure. The stenosis in the main circumflex beyond this vessel and it was not intervened upon due to inability to place the wire distally in this vessel due to tortuosity and severe disease. DIAGNOSIS 1. Severe two-vessel coronary atherosclerosis. 2. Angina pectoris functional class III. 3. Successful PCI/drug-eluting stent implant to the lateral circumflex artery. COMMENT/RECOMMENDATIONS Angiographically, this patient had excellent result in the lateral circumflex artery. We will continue aggressive medical management and see if her symptoms improve at this time, It may be possible to come back and attempt again to wire the distal circumflex and do additional intervention to that vessel, but due to chronic renal insufficiency and intravenous contrast constraints. No further intervention will be performed today. The patient will be discharged home later today if ambulatory and stable. Followup has been arranged. All of her previous medications have been restarted including Effient and aspirin. MD MARIA E Tejada/ /10:21 AM /10:57 PM
== END 2016-12-13 17:10 | disposition home or self-care (01) ==
LOC: HDOC 05:54 → HDIC 05:56 → HDOC 17:10
PROVIDERS: ATTEND Internal Medicine Interventional Cardiology
DX: I25.118 Atherosclerotic heart disease of native coronary artery with other forms of angina pectoris (principal); I10 Essential (primary) hypertension; I48.91 Unspecified atrial fibrillation; E11.9 Type 2 diabetes mellitus without complications; M32.9 Systemic lupus erythematosus, unspecified; Z95.1 Presence of aortocoronary bypass graft
CPT/HCPCS: 80048; 85002; 93454; C1725; C1769; C1874; C1887; C1893; J0360; J1200; J1644; J1720; J2250; J3010; J7030; Q9967

== ENCOUNTER → 2016-12-24 | Outpatient (CLI) | payer MEDICARE, MEDICAID ==
[~2016-12-24] MED LIST changes: -ADVA230A INH; -AMLO5TAB2 PO; -HYDR-3516 PO; -OMEP40CA2 PO; -TORS20TA PO
[2016-12-24 08:29] LABS: BASOPHIL # 0.1 TH/MM3 (0-0.2); BASOPHIL % 0.7 % (0.0-2.0); EOSINOPHIL # 0.2 TH/MM3 (0-0.4); HEMO FLAGS DIFF FINAL; LYMPHOCYTE # 1.6 TH/MM3 (1.0-4.8); MEAN CELL VOLUME 92.1 FL (80.0-100.0); MEAN CORPUSCULAR HEMOGLOBIN 31.1 PG (27.0-34.0); MEAN CORPUSCULAR HGB CONC 33.8 % (32.0-36.0); MONO % 6.9 % (0.0-8.0); NEUT % 73.4 % (16.0-70.0); PLATELET COUNT 198 TH/MM3 (150-450); RED BLOOD COUNT 4.45 MIL/MM3 (4.00-5.30); RED CELL DISTRIBUTION WIDTH 15.7 % (11.6-17.2); WHITE BLOOD COUNT 9.5 TH/MM3 (4.0-11.0)
[2016-12-24 09:18] LABS: BLOOD UREA NITROGEN 25 MG/DL (7-18)
[2016-12-24 09:19] LABS: ANION GAP 9 MEQ/L (5-15); AST (GOT) 10 U/L (15-37); BICARBONATE 24.7 MEQ/L (21.0-32.0); CHLORIDE 104 MEQ/L (98-107); GLOMERULAR FILTRATION RATE 38 ML/MIN (>89); GLUCOSE,FASTING 98 MG/DL (74-99); SODIUM (NA) 138 MEQ/L (136-145)
[2016-12-24 09:22] LABS: WESTERGREN SEDIMENTATION RATE 43 mm/hr (0-30)
[2016-12-24 09:29] LABS: ALKALINE PHOSPHATASE 100 U/L (45-117); ALT (GPT) 17 U/L (10-53); TOTAL BILIRUBIN ADULT 0.4 MG/DL (0.2-1.0)
== END ==
LOC: CLAB 07:56
PROVIDERS: ATTEND Family Medicine
DX: N18.9 Chronic kidney disease, unspecified (principal); D63.1 Anemia in chronic kidney disease; M32.9 Systemic lupus erythematosus, unspecified
CPT/HCPCS: 36415; 80053; 84443; 85025; 85652

== ENCOUNTER → 2017-03-12 | Outpatient (CLI) | payer MEDICARE, MEDICAID ==
[2017-03-12 10:03] LABS: AUTOMATED NEUTROPHIL # 7.2 TH/MM3 (1.8-7.7); BASOPHIL % 0.1 % (0.0-2.0); EOSINOPHIL # 0.2 TH/MM3 (0-0.4); HEMATOCRIT 39.3 % (35.0-46.0); HEMO FLAGS DIFF FINAL; LYMPH % 18.1 % (9.0-44.0); LYMPHOCYTE # 1.8 TH/MM3 (1.0-4.8); MEAN CELL VOLUME 94.5 FL (80.0-100.0); MEAN CORPUSCULAR HEMOGLOBIN 31.3 PG (27.0-34.0); MEAN CORPUSCULAR HGB CONC 33.1 % (32.0-36.0); MONO % 7.6 % (0.0-8.0); NEUT % 72.2 % (16.0-70.0); PLATELET COUNT 198 TH/MM3 (150-450); RED BLOOD COUNT 4.16 MIL/MM3 (4.00-5.30); RED CELL DISTRIBUTION WIDTH 15.4 % (11.6-17.2)
[2017-03-12 10:17] LABS: BACTERIA, URINE FEW /hpf; BLOOD, URINE NEG (NEG); GLUCOSE,URINE NEG (NEG); KETONE, URINE NEG (NEG); NITRITE,URINE NEG (NEG); SQUAMOUS EPITHELIAL CELL URINE 2 /hpf (0-5); URINE COLOR YELLOW (YELLW/STRAW)
[2017-03-12 10:30] LABS: CHLORIDE 105 MEQ/L (98-107); POTASSIUM 4.2 MEQ/L (3.5-5.1); SODIUM (NA) 139 MEQ/L (136-145)
[2017-03-12 10:40] LABS: WESTERGREN SEDIMENTATION RATE 49 mm/hr (0-30)
[2017-03-12 10:50] LABS: BLOOD UREA NITROGEN 27 MG/DL (7-18); GLOMERULAR FILTRATION RATE 43 ML/MIN (>89); GLUCOSE,FASTING 99 MG/DL (74-99)
[2017-03-12 11:23] LABS: ALKALINE PHOSPHATASE 84 U/L (45-117); ALT (GPT) 19 U/L (10-53); ANION GAP 7 MEQ/L (5-15); AST (GOT) 10 U/L (15-37); BICARBONATE 26.8 MEQ/L (21.0-32.0); TOTAL BILIRUBIN ADULT 0.3 MG/DL (0.2-1.0)
[2017-03-12 16:23] LABS: HEMOGLOBIN A1b 2.1 %; HEMOGLOBIN Ao 83.3 %; HEMOGLOBIN LA1C 2.1 %; HEMOGLOBIN P3 4.4 %
== END ==
LOC: CLAB 08:32
PROVIDERS: ATTEND Internal Medicine Nephrology
DX: M60.9 Myositis, unspecified (principal); N18.3 Chronic kidney disease, stage 3 (moderate); E11.22 Type 2 diabetes mellitus with diabetic chronic kidney disease
CPT/HCPCS: 36415; 80053; 81001; 82043; 83036; 83970; 84443; 85025; 85652; 86038; 86160

== ENCOUNTER → 2017-05-09 | Outpatient (CLI) | payer MEDICARE, MEDICAID ==
[2017-05-09 10:38] LABS: AUTOMATED NEUTROPHIL # 13.4 TH/MM3 (1.8-7.7); BASOPHIL # 0.2 TH/MM3 (0-0.2); BASOPHIL % 0.8 % (0.0-2.0); EOSINOPHIL # 0.2 TH/MM3 (0-0.4); EOSINOPHIL % 1.3 % (0.0-4.0); HEMOGLOBIN 13.8 GM/DL (11.6-15.3); LYMPH % 16.9 % (9.0-44.0); LYMPHOCYTE # 3.1 TH/MM3 (1.0-4.8); MEAN CELL VOLUME 92.9 FL (80.0-100.0); MEAN CORPUSCULAR HEMOGLOBIN 31.4 PG (27.0-34.0); MEAN CORPUSCULAR HGB CONC 33.8 % (32.0-36.0); MEAN PLATELET VOLUME 10.9 FL (7.0-11.0); MONO % 8.3 % (0.0-8.0); MONOCYTE # 1.5 TH/MM3 (0-0.9); NEUT % 72.7 % (16.0-70.0); PLATELET COUNT 199 TH/MM3 (150-450); RED BLOOD COUNT 4.41 MIL/MM3 (4.00-5.30); RED CELL DISTRIBUTION WIDTH 15.5 % (11.6-17.2); WHITE BLOOD COUNT 18.5 TH/MM3 (4.0-11.0)
[2017-05-09 11:00] LABS: ALT (GPT) 18 U/L (10-53); WESTERGREN SEDIMENTATION RATE 21 mm/hr (0-30)
[2017-05-09 11:03] LABS: ALKALINE PHOSPHATASE 90 U/L (45-117); TOTAL BILIRUBIN ADULT 0.5 MG/DL (0.2-1.0); TOTAL PROTEIN 8.3 GM/DL (6.4-8.2)
[2017-05-09 11:08] LABS: ALBUMIN 3.3 GM/DL (3.4-5.0); AST (GOT) 14 U/L (15-37); BICARBONATE 28.7 MEQ/L (21.0-32.0); BLOOD UREA NITROGEN 23 MG/DL (7-18); CALCIUM 8.9 MG/DL (8.5-10.1); CHLORIDE 104 MEQ/L (98-107); CREATININE 1.49 MG/DL (0.50-1.00); GLOMERULAR FILTRATION RATE 44 ML/MIN (>89); GLUCOSE,FASTING 80 MG/DL (74-99); SODIUM (NA) 138 MEQ/L (136-145)
[2017-05-09 11:15] LABS: FREE T3 2.99 PG/ML (2.18-3.98); FREE T4 1.24 NG/DL (0.76-1.46)
[2017-05-10 19:54] LABS: THYROGLOB ABS LESS THAN 1 IU/mL (< OR = 1); THYROID PEROX AB (MICROSOMAL) 1 IU/mL (<9)
[2017-05-10 23:51] LABS: CALCITONIN LESS THAN 2.0 pg/mL (5 OR LESS)
[2017-05-11 19:52] LABS: THYROID STIMULATING IMMUNOGLOB LESS THAN 89.0 (<140)
== END ==
LOC: CLAB 09:11
PROVIDERS: ATTEND Allergy & Immunology
DX: L98.8 Other specified disorders of the skin and subcutaneous tissue (principal); M32.8 Other forms of systemic lupus erythematosus; G47.30 Sleep apnea, unspecified; K76.0 Fatty (change of) liver, not elsewhere classified; E04.2 Nontoxic multinodular goiter; M35.9 Systemic involvement of connective tissue, unspecified; R76.8 Other specified abnormal immunological findings in serum; I10 Essential (primary) hypertension; N95.1 Menopausal and female climacteric states; I70.209 Unspecified atherosclerosis of native arteries of extremities, unspecified extremity; E66.01 Morbid (severe) obesity due to excess calories; J32.9 Chronic sinusitis, unspecified; E16.1 Other hypoglycemia; E04.1 Nontoxic single thyroid nodule; E06.3 Autoimmune thyroiditis; E04.9 Nontoxic goiter, unspecified
CPT/HCPCS: 36415; 80053; 82308; 84432; 84439; 84445; 84481; 84550; 85025; 85652; 86038; 86140; 86225; 86376; 86800

== ENCOUNTER → 2017-07-01 | Outpatient (CLI) | payer MEDICARE, MEDICAID ==
[2017-07-01 13:05] LABS: HEMATOCRIT 40.2 % (35.0-46.0); HEMOGLOBIN 13.5 GM/DL (11.6-15.3); MEAN CELL VOLUME 92.7 FL (80.0-100.0); MEAN CORPUSCULAR HEMOGLOBIN 31.2 PG (27.0-34.0); MEAN CORPUSCULAR HGB CONC 33.6 % (32.0-36.0); MEAN PLATELET VOLUME 10.5 FL (7.0-11.0); PLATELET COUNT 196 TH/MM3 (150-450); RED BLOOD COUNT 4.34 MIL/MM3 (4.00-5.30); WHITE BLOOD COUNT 10.3 TH/MM3 (4.0-11.0)
[2017-07-01 13:15] LABS: BICARBONATE 30.4 MEQ/L (21.0-32.0); CREATININE 1.45 MG/DL (0.50-1.00)
== END ==
LOC: CLAB 12:31
PROVIDERS: ATTEND Internal Medicine Interventional Cardiology
DX: I11.0 Hypertensive heart disease with heart failure (principal); R06.02 Shortness of breath; I25.118 Atherosclerotic heart disease of native coronary artery with other forms of angina pectoris; I50.32 Chronic diastolic (congestive) heart failure
CPT/HCPCS: 36415; 80048; 85027

== ENCOUNTER → 2017-07-25 | Outpatient (CLI) | payer MEDICARE, MEDICAID ==
[2017-07-25 09:03] LABS: BASOPHIL % 0.3 % (0.0-2.0); EOSINOPHIL # 0.2 TH/MM3 (0-0.4); EOSINOPHIL % 1.9 % (0.0-4.0); HEMATOCRIT 38.8 % (35.0-46.0); HEMOGLOBIN 13.2 GM/DL (11.6-15.3); LYMPH % 15.4 % (9.0-44.0); LYMPHOCYTE # 1.8 TH/MM3 (1.0-4.8); MEAN CELL VOLUME 92.1 FL (80.0-100.0); MEAN CORPUSCULAR HEMOGLOBIN 31.3 PG (27.0-34.0); MEAN PLATELET VOLUME 10.3 FL (7.0-11.0); MONO % 6.3 % (0.0-8.0); MONOCYTE # 0.7 TH/MM3 (0-0.9); NEUT % 76.1 % (16.0-70.0); PLATELET COUNT 205 TH/MM3 (150-450); RED BLOOD COUNT 4.21 MIL/MM3 (4.00-5.30); RED CELL DISTRIBUTION WIDTH 16.7 % (11.6-17.2); WHITE BLOOD COUNT 11.9 TH/MM3 (4.0-11.0)
[2017-07-25 09:21] LABS: BACTERIA, URINE MOD /hpf; BILIRUBIN, URINE NEG (NEG); BLOOD, URINE NEG (NEG); GLUCOSE,URINE NEG (NEG); KETONE, URINE NEG (NEG); MUCUS URINE FEW /lpf (OCC); NITRITE,URINE NEG (NEG); SQUAMOUS EPITHELIAL CELL URINE 3 /hpf (0-5); URINE COLOR YELLOW (YELLW/STRAW); URINE LEUKOCYTE ESTERASE NEG (NEG)
[2017-07-25 09:25] LABS: ALBUMIN 3.4 GM/DL (3.4-5.0); AST (GOT) 14 U/L (15-37); BICARBONATE 30.9 MEQ/L (21.0-32.0); BLOOD UREA NITROGEN 24 MG/DL (7-18); CALCIUM 8.6 MG/DL (8.5-10.1); CHLORIDE 102 MEQ/L (98-107); CREATININE 1.59 MG/DL (0.50-1.00); GLOMERULAR FILTRATION RATE 41 ML/MIN (>89); GLUCOSE,FASTING 100 MG/DL (74-99); SODIUM (NA) 140 MEQ/L (136-145)
[2017-07-25 09:27] LABS: ALKALINE PHOSPHATASE 102 U/L (45-117); TOTAL BILIRUBIN ADULT 0.4 MG/DL (0.2-1.0); TOTAL PROTEIN 8.2 GM/DL (6.4-8.2)
[2017-07-25 09:34] LABS: ALKALINE PHOSPHATASE 102 U/L (45-117); ALT (GPT) 16 U/L (10-53); TOTAL BILIRUBIN ADULT 0.5 MG/DL (0.2-1.0); TOTAL PROTEIN 8.2 GM/DL (6.4-8.2)
[2017-07-25 09:36] LABS: ALBUMIN 3.4 GM/DL (3.4-5.0); ALT (GPT) 16 U/L (10-53); AST (GOT) 14 U/L (15-37); DIRECT BILIRUBIN ADULT 0.1 MG/DL (0.0-0.2); GAMMA GT 17 U/L (5-55); INDIRECT BILIRUBIN 0.3 MG/DL (0.0-0.8)
[2017-07-25 09:55] LABS: RHEUMATOID FACTOR SCREEN NEGATIVE (NEGATIVE)
[2017-07-25 09:57] LABS: WESTERGREN SEDIMENTATION RATE 38 mm/hr (0-30)
[2017-07-25 17:04] LABS: HEMOGLOBIN A1C 6.4 % (4.3-6.0)
== END ==
LOC: CLAB 08:06
PROVIDERS: ATTEND Specialist
DX: R79.82 Elevated C-reactive protein (CRP) (principal); R70.0 Elevated erythrocyte sedimentation rate; D64.9 Anemia, unspecified; E13.620 Other specified diabetes mellitus with diabetic dermatitis; E55.0 Rickets, active; M32.8 Other forms of systemic lupus erythematosus; M79.7 Fibromyalgia
CPT/HCPCS: 36415; 80053; 80076; 81001; 82306; 82977; 83036; 83735; 84100; 84550; 85025; 85652; 86140; 86200; 86430

== ENCOUNTER 2017-08-15 13:14 | Emergency (ER) | payer MEDICARE, MEDICAID ==
[2017-08-15 13:27] VITALS: PULSE 59; RESP 18; TEMP 98.9; O2SAT 99
[2017-08-15 13:36] VITALS: BP 178/110
== END 2017-08-15 13:51 | disposition left against medical advice (07) ==
LOC: NED 13:14
DX: R09.89 Other specified symptoms and signs involving the circulatory and respiratory systems (principal); Z53.21 Procedure and treatment not carried out due to patient leaving prior to being seen by health care provider
CPT/HCPCS: 99281